=== PATIENT | male | born 1950 | race Caucasian/White ===

== ENCOUNTER 2017-05-14 13:28 | Emergency (ER) | payer OTHER, MEDICARE ==
[2017-05-14 13:40] VITALS: BP 173/97
[2017-05-14] MEDS ORDERED: Albuterol/Ipratropium 3.0-0.5 MG/3 ML Neb Soln NEB ONE (14:02)
[2017-05-14] MEDS ORDERED: Levofloxacin 750 MG Tab PO STA (14:04)
--- NOTE | 2017-05-14 14:26 | EDM.PDOC ---
ED HPI GENERAL MEDICAL PROBLEM - General Chief Complaint: Respiratory Problem Stated Complaint: SOB Time Seen by Provider: 05/14/17 13:31 Source of Information: Reports: Patient, Family (), RN Notes Reviewed History Limitations: Reports: No Limitations - History of Present Illness INITIAL COMMENTS - FREE TEXT/NARRATIVE: The patient states that he has had dyspnea on exertion, wheezing, and a cough waxing and waning for the past 10 days. Initially his cough was dry, but it is now productive of clear phlegm. His symptoms were the worst yesterday, not as bad today. He has not had a fever. He has not had any chest pain or palpitations. No recent nausea, vomiting, constipation, diarrhea, or urinary symptoms. He has had similar symptoms previously, but not as severe. He believes the last time this happened to him, he was diagnosed with pneumonia. The patient states that he and his drove to [facility], beginning 05/02/2017, taking 5 days to get there. They just got back here to [place] just now. The patient does not have a formal diagnosis of COPD, however, he was given an albuterol MDI about a month ago, and states that he has been using up to 6 or 7 times a day; twice today. He states that the albuterol definitely helps, but only for a brief time. Exposure to gr dust worsens his symptoms. I had the patient demonstrate his MDI use it for me; his technique is poor. He states that he was never instructed on how to use it. The patient's PCP is Dr. Manzanares. - Related Data Allergies Allergy/AdvReac Type Severity Reaction Status Date / Time No Known Allergies Allergy Verified 05/14/17 13:44 Home Meds: Home Meds Albuterol [IJP: Ventolin HFA] 1 - 2 puff INH ASDIRECTED PRN #1 mdi 05/14/17 [Rx] Albuterol [Ventolin HFA] 2 puff INH Q6H PRN 05/14/17 [History] Aspirin 81 mg PO DAILY 05/14/17 [History] Atenolol 25 mg PO DAILY 05/14/17 [History] Calcium Carbonate [Calcium] 60 mg PO DAILY 05/14/17 [History] Docusate Sodium [Stool Softener] 100 mg PO DAILY 05/14/17 [History] Inhaler, Assist Devices [Space Chamber Plus] 1 unit ASDIRECTED #1 spacer 04/22 [Rx] Levofloxacin [Levaquin] 1 tab PO DAILY #4 tablet 05/14/17 [Rx] Simvastatin [Zocor] 20 mg PO DAILY 05/14/17 [History] Thiamine Mononitrate [Vitamin B-1] 100 mg PO DAILY 05/14/17 [History] amLODIPine [Norvasc] 10 mg PO DAILY 05/14/17 [History] Past Medical History Cardiovascular History: Reports: High Cholesterol, Hypertension Genitourinary History: Reports: Chronic Renal Insuffiency - Past Surgical History Male Surgical History: Reports: Other (See Below) (Cystoscopy) Social & Family History - Tobacco Use Smoking Status *Q: Former Smoker Years of Tobacco use: 43 Packs/Tins Daily: 1 Month Tobacco Last Used: Quit 2012 - Caffeine Use Caffeine Use: Reports: Coffee - Alcohol Use Alcohol Use History: Yes Alcohol Use Frequency: Socially - Recreational Drug Use Recreational Drug Use: Yes Drug Use in Last 12 Months: Yes Recreational Drug Type: Reports: Marijuana/Hashish Recreational Drug Use Frequency: Daily - Living Situation & Occupation Living situation: Reports: , with Spouse Occupation: Employed ([employer]) ED ROS GENERAL - Review of Systems Review Of Systems: See Below Constitutional: Reports: No Symptoms HEENT: Reports: No Symptoms Respiratory: Reports: No Symptoms Cardiovascular: Reports: No Symptoms Endocrine: Reports: No Symptoms GI/Abdominal: Reports: No Symptoms : Reports: No Symptoms Musculoskeletal: Reports: No Symptoms Skin: Reports: No Symptoms Neurological: Reports: No Symptoms Psychiatric: Reports: No Symptoms Hematologic/Lymphatic: Reports: No Symptoms Immunologic: Reports: No Symptoms ED EXAM, GENERAL - Physical Exam Exam: See Below Exam Limited By: No Limitations General Appearance: Alert, WD/WN, No Apparent Distress Eye Exam: Bilateral Eye: Normal Inspection Ears: Normal External Exam, Hearing Grossly Normal Nose: Normal Inspection, No Blood Throat/Mouth: Normal Inspection, Normal Lips, Normal Voice, No Airway Compromise Head: Atraumatic, Normocephalic Neck: Normal Inspection, Full Range of Motion Respiratory/Chest: No Accessory Muscle Use, Decreased Breath Sounds (severe), Wheezing (faint throu ghout, due to tight/poor air movement), Prolonged Expiration (significant). No: Crackles, Rhonchi Cardiovascular: Normal Peripheral Pulses, Regular Rate, Rhythm, No Gallop, No JVD, No Murmur, No Rub Peripheral Pulses: 4+: Radial (L), Radial (R) GI/Abdominal: Normal Bowel Sounds, Soft, Non-Tender, No Organomegaly, No Distention, No Abnormal Bruit, No Mass (Male) Exam: Deferred Rectal (Males) Exam: Deferred Back Exam: Normal Inspection, Full Range of Motion, NT Extremities: Normal Inspection, Normal Range of Motion, No Pedal Edema, Normal Capillary Refill Neurological: Alert, Oriented, Normal Cognition, No Motor/Sensory Deficits Psychiatric: Normal Affect Skin Exam: Warm, Dry, Intact, Normal Color, No Rash EKG INTERPRETATION EKG Date: 05/14/17 Time: 14:16 Rhythm: NSR Rate (Beats/Min): 70 [place]: Normal P-Wave: Present QRS: Normal ST-T: Normal QT: Normal TX/PQ Interval: 1st degree AVB Comparison: NA - No Prior EKG Course - Vital Signs Last Recorded V/S: Last Vital Signs Temp 36.3 C 05/14/17 13:36 Pulse 74 05/14/17 13:36 Resp 18 05/14/17 13:36 BP 173/97 H 05/14/17 13:36 Pulse Ox 95 05/14/17 16:10 - Orders/Labs/Meds Orders: Active Orders 24 hr Category Date Time Status EKG Documentation Completion [RC] STAT Care 05/14/17 14:00 Active RT Aerosol Therapy [RC] ASDIRECTED Care 05/14/17 14:02 Active RT Aerosol Therapy [RC] ASDIRECTED Care 05/14/17 16:07 Active CULTURE BLOOD [BC] Stat Lab 05/14/17 14:25 Received CULTURE BLOOD [BC] Stat Lab 05/14/17 14:45 Received Blood Culture x2 Reflex Set [OM.PC] Stat Oth 05/14/17 14:00 Ordered Labs: Laboratory Tests 05/14/17 05/14/17 05/14/17 Range/Units 14:00 14:25 14:25 WBC 9.31 H (4.23-9.07) K/mm3 RBC 4.31 L (4.63-6.08) M/mm3 Hgb 13.8 (13.7-17.5) gm/L Hct 41.1 (40.1-51.0) % MCV 95.4 H (79.0-92.2) fl MCH 32.0 (25.7-32.2) pg MCHC 33.6 (32.2-35.5) g/dl RDW Std Deviation 45.8 H (35.1-43.9) fL Plt Count 270 (163-337) K/mm3 MPV 9.8 (9.4-12.3) fl Neutrophils % (Manual) 47 (40-60) % Band Neutrophils % 0 (0-10) % Lymphocytes % (Manual) 32 (20-40) % Atypical Lymphs % 0 % Monocytes % (Manual) 5 (2-10) % Eosinophils % (Manual) 16 H (0.8-7.0) % Basophils % (Manual) 0 L (0.2-1.2) Platelet Estimate Adequate RBC Morph Comment Normal PT 10.8 (8.0-13.0) SECONDS INR 0.99 APTT 26 (22-36) SECONDS D-Dimer, Quantitative 1.29 H (0.19-0.59) mg/L Puncture Site Lt radial ABG pH 7.43 (7.35-7.45) ABG pCO2 34.2 L (35.0-45.0) mmHg ABG pO2 68.0 L (80.0-100.0) mmHg ABG HCO3 22.5 (22.0-26.0) meq/L ABG O2 Saturation 93.9 L (96.0-97.0) % ABG Base Excess -0.7 (-2-2.0) Rafael Test Positive A-a Gradient 69 mmHg O2 Delivery Device Nasal cannula Oxygen Flow Rate 2.0 FiO2 28.00 (21.00-100.00) % Sodium (136-145) mEq/L Potassium (3.5-5.1) mEq/L Chloride (98-107) mEq/L Carbon Dioxide (21-32) mEq/L Anion Gap (5-15) BUN (7-18) mg/dL Creatinine (0.7-1.3) mg/dL Est Cr Clr Drug Dosing mL/min Estimated GFR (MDRD) (>60) mL/min BUN/Creatinine Ratio (14-18) Glucose (80-115) mg/dL Lactic Acid (0.4-2.0) mmol/L Calcium (8.5-10.1) mg/dL Total Bilirubin (0.2-1.0) mg/dL AST (15-37) U/L ALT (16-63) U/L Alkaline Phosphatase (46-116) U/L Troponin I (0.00-0.056) ng/mL NT-Pro-B Natriuret Pep (0-125) pg/mL Total Protein (6.4-8.2) g/dl Albumin (3.4-5.0) g/dl Globulin gm/dL Albumin/Globulin Ratio (1-2) 05/14/17 05/14/17 Range/Units 14:25 14:25 WBC (4.23-9.07) K/mm3 RBC (4.63-6.08) M/mm3 Hgb (13.7-17.5) gm/L Hct (40.1-51.0) % MCV (79.0-92.2) fl MCH (25.7-32.2) pg MCHC (32.2-35.5) g/dl RDW Std Deviation (35.1-43.9) fL Plt Count (163-337) K/mm3 MPV (9.4-12.3) fl Neutrophils % (Manual) (40-60) % Band Neutrophils % (0-10) % Lymphocytes % (Manual) (20-40) % Atypical Lymphs % % Monocytes % (Manual) (2-10) % Eosinophils % (Manual) (0.8-7.0) % Basophils % (Manual) (0.2-1.2) Platelet Estimate RBC Morph Comment PT (8.0-13.0) SECONDS INR APTT (22-36) SECONDS D-Dimer, Quantitative (0.19-0.59) mg/L Puncture Site ABG pH (7.35-7.45) ABG pCO2 (35.0-45.0) mmHg ABG pO2 (80.0-100.0) mmHg ABG HCO3 (22.0-26.0) meq/L ABG O2 Saturation (96.0-97.0) % ABG Base Excess (-2-2.0) Rafael Test A-a Gradient mmHg O2 Delivery Device Oxygen Flow Rate FiO2 (21.00-100.00) % Sodium 137 (136-145) mEq/L Potassium 3.7 (3.5-5.1) mEq/L Chloride 101 (98-107) mEq/L Carbon Dioxide 24 (21-32) mEq/L Anion Gap 15.7 H (5-15) BUN 22 H (7-18) mg/dL Creatinine 2.0 H (0.7-1.3) mg/dL Est Cr Clr Drug Dosing 36.50 mL/min Estimated GFR (MDRD) 33 (>60) mL/min BUN/Creatinine Ratio 11.0 L (14-18) Glucose 117 H (80-115) mg/dL Lactic Acid 1.1 (0.4-2.0) mmol/L Calcium 9.3 (8.5-10.1) mg/dL Total Bilirubin 0.4 (0.2-1.0) mg/dL AST 23 (15-37) U/L ALT 23 (16-63) U/L Alkaline Phosphatase 91 (46-116) U/L Troponin I < 0.017 (0.00-0.056) ng/mL NT-Pro-B Natriuret Pep 429 H (0-125) pg/mL Total Protein 7.9 (6.4-8.2) g/dl Albumin 3.6 (3.4-5.0) g/dl Globulin 4.3 gm/dL Albumin/Globulin Ratio 0.8 L (1-2) Meds: Medications Discontinued Medications Generic Name Dose Route Start Last Admin Trade Name Freq PRN Reason Stop Dose Admin Albuterol 2.5 mg 05/14/17 16:07 05/14/17 16:10 Proventil Neb Soln NEB 05/14/17 16:08 2.5 mg ONETIME ONE Administration Albuterol/Ipratropium 3 ml 05/14/17 14:02 05/14/17 14:11 Duoneb 3.0-0.5 Mg/3 Ml NEB 05/14/17 14:03 3 ml ONETIME ONE Administration Levofloxacin 750 mg 05/14/17 14:04 05/14/17 14:32 Levaquin PO 05/14/17 14:05 750 mg ONETIME STA Administration - Re-Assessments/Exams Free Text/Narrative Re-Assessment/Exam: 05/14/17 15:53 2-view chest radiograph is read by Dr. Rodriguez as: 1. Emphysematous change. Nothing acute is otherwise seen. 05/14/17 16:05 I reexamined the patient. He states that he is feeling considerably better, following the DuoNeb treatment. His lungs still sound poor, with prolonged exhalation and faint wheezes. It is difficult to say that they sound much better than they did earlier. I have ordered an albuterol neb treatment. 05/14/17 16:40 Following the albuterol neb, the patient states that he feels even better. He has fair overall air movement and faint expiratory wheezes. He still has prolonged exhalations. The patient's D-dimer is modestly elevated at 1.29, however, his creatinine is 2.0. In my opinion, his elevated D-dimer is due to his renal insufficiency, although, as I explained to the patient and his , it is possible that the patient has a PE. I offered to perform a CT angiogram of the chest to evaluate for PE, noting that he would likely suffer worsening renal insufficiency for approximately one week before returning to his baseline. Nevertheless, the patient declined this offer. We discussed the option of steroids. Steroids are often given for COPD exacerbations, however, I explained to the patient and his that while patients with COPD exacerbations who receive steroids do better initially, fewer of them are alive after 2 years compared to patients with COPD exacerbations who do not receive steroids. Obviously, this is a judgment call as whether or not to give steroids for a COPD exacerbation. The patient opted to not receive steroids. The patient feels well enough to go home. I will prescribe a spacer chamber, along with a new albuterol MDI, and 4 additional days of oral Levaquin ( antibiotics are recommended for COPD exacerbations even if no infection is found , as there is a presumption of an infection). I would like the patient to follow -up with his PCP, Dr. Manzanares, this week, to discuss referral to a [facility] for long-term treatment. Departure - Departure Time of Disposition: 16:44 Disposition: Home, Self-Care 01 Condition: Good Clinical Impression: COPD exacerbation - Discharge Information Prescriptions: Albuterol [IJP: Ventolin HFA] 1 - 2 puff INH ASDIRECTED PRN #1 mdi PRN Reason: Shortness Of Breath Inhaler, Assist Devices [Space Chamber Plus] 1 unit MC ASDIRECTED #1 spacer Levofloxacin [Levaquin] 1 tab PO DAILY #4 tablet Referrals: Bony Manzanares Jr, MD [Primary Care Provider] - Forms: ED Department Discharge Additional Instructions: You were seen in the emergency room for shortness of breath with exertion, wheezing, and cough. Workup in the ER included blood work, 2 sets of blood cultures, an arterial blood gas, an ECG, and a chest x-ray. For the most part, your workup was unremarkable, however, on examination, you had very poor air movement with faint wheezes. Your symptoms improved following a DuoNeb and albuterol neb treatment. Your symptoms were MOST LIKELY due to a COPD exacerbation. You have been started on antibiotic Levaquin. Take one tablet each evening, starting tomorrow, 05/15/2017. You have been prescribed an albuterol MDI. Always use it with a space chamber. Using it as often as necessary for shortness of breath, difficulty exhaling, wheezing, with or without a cough, however, if you need to use the albuterol more often than every 4 hours, you need to be seen by a doctor. We recommend that you follow-up with Dr. Manzanares, to discuss the option of being referred to a [facility]. If any other problems, please do not hesitate to return to the ER. - My Orders Last 24 Hours: My Active Orders 05/14/17 14:00 EKG Documentation Completion [RC] STAT Blood Culture x2 Reflex Set [OM.PC] Stat 05/14/17 14:02 RT Aerosol Therapy [RC] ASDIRECTED 05/14/17 14:25 CULTURE BLOOD [BC] Stat 05/14/17 14:45 CULTURE BLOOD [BC] Stat 05/14/17 16:07 RT Aerosol Therapy [RC] ASDIRECTED - Assessment/Plan Last 24 Hours: My Active Orders 05/14/17 14:00 EKG Documentation Completion [RC] STAT Blood Culture x2 Reflex Set [OM.PC] Stat 05/14/17 14:02 RT Aerosol Therapy [RC] ASDIRECTED 05/14/17 14:25 CULTURE BLOOD [BC] Stat 05/14/17 14:45 CULTURE BLOOD [BC] Stat 05/14/17 16:07 RT Aerosol Therapy [RC] ASDIRECTED
--- NOTE | 2017-05-14 15:36 | CR ---
Chest: Two views of the chest were obtained. Comparison: Previous chest x-ray of 03/04/13. Heart size appears within normal limits. Tortuous thoracic aorta is seen. Lungs are hyperinflated compatible with emphysematous change. Lungs otherwise are clear. Bony structures appear within normal limits for the patient's age. Impression: 1. Emphysematous change. Nothing acute is otherwise seen. Diagnostic code #3
[2017-05-14] MEDS ORDERED: Albuterol 0.083% 2.5 MG/3 ML Neb Soln NEB ONE (16:07)
== END 2017-05-14 17:23 | disposition home or self-care (01) ==
LOC: JD.ED 13:28
DX: J44.1 Chronic obstructive pulmonary disease with (acute) exacerbation (principal); E78.00 Pure hypercholesterolemia, unspecified; I10 Essential (primary) hypertension; Z79.82 Long term (current) use of aspirin; Z79.899 Other long term (current) drug therapy; Z87.891 Personal history of nicotine dependence; R06.02 Shortness of breath
CPT/HCPCS: 36415; 36600; 71020; 80053; 82803; 83605; 83880; 84484; 85025; 85379; 85610; 85730; 87040; 93005; 94640; 99285; A9270; 99284

== ENCOUNTER 2019-01-31 08:03 | Day surgery (SDC) | payer OTHER, MEDICARE ==
[~2019-01-31 08:03] MED LIST: Lactated Ringers 1,000 ML IV SCH; Lidocaine 1% 4 ML ONE; Lidocaine 1%/Sod Bicarbonate in NS 8.4% 1 ML Syringe IDERM PRN; Propofol 200 MG/20 ML SDV ONE; Sodium Chloride 0.9% 10 ML Syringe FLUSH PRN; fentaNYL 100 MCG/2 ML SDV ONE
--- NOTE | 2019-01-31 08:33 | PCM.PREANE ---
Preanesthetic Assessment - Anesthesia/Transfusion/Family Hx Anesthesia History: Prior Anesthesia Without Reaction Family History of Anesthesia Reaction: No Transfusion History: No Prior Transfusion(s) Intubation History: Unknown - Review of Systems General: No Symptoms Pulmonary: Wheezing Gastrointestinal: No Symptoms Neurological: No Symptoms Other: Reports: None - Physical Assessment NPO Status Date: 01/30/19 NPO Status Time: 07:00 Height: 1.78 m Weight: 73.028 kg ASA Class: 2 Mental Status: Alert & Oriented x3 Airway Class: Mallampati = 2 Dentition: Reports: Dentures ROM/Head Extension: Full Lungs: Wheezing Cardiovascular: Regular Rate, Regular Rhythm - Allergies Allergies/Adverse Reactions: Allergies Allergy/AdvReac Type Severity Reaction Status Date / Time No Known Allergies Allergy Verified 01/30/19 10:32 - Blood Blood Available: No - Anesthesia Plan Beta Robert: Atenolol - Acknowledgements Anesthesia Type Planned: MAC Pt an Appropriate Candidate for the Planned Anesthesia: Yes Alternatives and Risks of Anesthesia Discussed w Pt/Guardian: Yes Pt/Guardian Understands and Agrees with Anesthesia Plan: Yes Additional Comments: has aortic aneurysm - not operable- COPD- uses inhalers- this am - ventolin, Norvasc, ASA,Singulair, -- hypertension - 181/ PreAnesthesia Questionnaire HEENT History: Reports: Impaired Vision, Other (See Below) Other HEENT History: WEARS GLASSES, HAS DENTURES Cardiovascular History: Reports: High Cholesterol, Hypertension Respiratory History: Reports: Asthma, COPD, Other (See Below) Other Respiratory History: EMPHYSEMA, BRONCHITIS, DYSPNEA, RIGHT PULMONARY NODULES Gastrointestinal History: Reports: None Genitourinary History: Reports: BPH, Chronic Renal Insuffiency, Other (See Below ) Other Genitourinary History: CKD Iv, [employer]NAL [employer] History: Reports: None Musculoskeletal History: Reports: None Neurological History: Reports: None Psychiatric History: Reports: None Endocrine/Metabolic History: Reports: None Hematologic History: Reports: None Immunologic History: Reports: None Oncologic (Cancer) History: Reports: None Dermatologic History: Reports: None - Past Surgical History Head Surgeries/Procedures: Reports: None Cardiovascular Surgical History: Reports: None GI Surgical History: Reports: None Female Surgical History: Reports: TURBT Male Surgical History: Reports: Other (See Below) Endocrine Surgical History: Reports: None Neurological Surgical History: Reports: None Musculoskeletal Surgical History: Reports: None Oncologic Surgical History: Reports: None Dermatological Surgical History: Reports: None - SUBSTANCE USE Smoking Status *Q: Former Smoker Second Hand Smoke Exposure: No Days Per Week of Alcohol Use: 4 Number of Drinks Per Day: 3 Total Drinks Per Week: 12 Recreational Drug Use History: Yes Recreational Drug Type: Reports: Marijuana/Hashish - HOME MEDS Home Medications: Home Meds Albuterol [Ventolin HFA] 2 puff INH Q6H PRN 05/14/17 [History] Aspirin 81 mg PO DAILY 05/14/17 [History] Atenolol 25 mg PO DAILY 05/14/17 [History] Thiamine Mononitrate [Vitamin B-1] 100 mg PO DAILY 05/14/17 [History] amLODIPine [Norvasc] 10 mg PO DAILY 05/14/17 [History] Fluticasone/Vilanterol [Breo Ellipta 200-25 Mcg INH] 1 each IH DAILY 07/24/17 [ History] Montelukast [Singulair] 10 mg PO DAILY 07/24/17 [History] atorvaSTATin [Lipitor] 40 mg PO DAILY 07/24/17 [History] Ca Carbonate/Vitamin D3/Vit K [Calcium + D Soft Chewable Tab] 1 tab PO DAILY [History] Tiotropium [place] [Spiriva Respimat] 2 puff INH DAILY 01/30/19 [History] - CURRENT (IN HOUSE) MEDS Current Meds: Current Medications Lactated Ringer's (Ringers, Lactated) 1,000 mls @ 125 mls/hr IV ASDIRECTED MIRIAM Stop: 01/31/19 23:00 Lidocaine/Sodium Bicarbonate (Buffered Lidocaine 1% In Ns 8.4%) 0.25 ml IDERM ONETIME PRN PRN Reason: Prior to IV Start Stop: 01/31/19 18:00 Sodium Chloride (Saline Flush) 10 ml FLUSH ASDIRECTED PRN PRN Reason: Keep Vein Open Stop: 01/31/19 18:00 Discontinued Medications Fentanyl (Sublimaze) Confirm Administered Dose 100 mcg .ROUTE .STK-MED ONE Stop: 01/31/19 07:17 Lidocaine HCl (Xylocaine-Mpf 1%) Confirm Administered Dose 4 mls @ as directed .ROUTE .STK-MED ONE Stop: 01/31/19 07:16 Propofol (Diprivan 20 Ml) Confirm Administered Dose 200 mg .ROUTE .[facility] ONE Stop: 01/31/19 07:17
[2019-01-31] MEDS ORDERED: Sodium Chloride 0.9% 1,000 ML IV SCH (09:15)
[2019-01-31] MEDS ORDERED: Propofol 200 MG/20 ML SDV ONE (09:36)
--- NOTE | 2019-01-31 10:02 | PCM48HPAN ---
Post Anesthesia Note - EVALUATION WITHIN 48HRS OF ANESTHETIC Vital Signs in Normal Range: Yes Patient Participated in Evaluation: Yes Respiratory Function Stable: Yes Airway Patent: Yes Cardiovascular Function Stable: Yes Hydration Status Stable: Yes Pain Control Satisfactory: Yes Nausea and Vomiting Control Satisfactory: Yes Mental Status Recovered: Yes Pulse Rate: 54 SaO2: 96 Resp Rate: 16 Temperature: 97 F Blood Pressure: 118/85
--- NOTE | 2019-01-31 10:03 | PCM.OPNOTE ---
- General Post-Op/Procedure Note Date of Surgery/Procedure: 01/31/19 Operative Procedure(s): Colonoscopy with hot snare polypectomy and cold forceps biopsy Findings: Small Arteriorvenous malformation x 2 cecum, colon polyps x 4 Pre Op Diagnosis: Positive Fecal Immunochemical Test Post-Op Diagnosis: Colon polyps x 4, Small arteriorovenous malformation x 2 cecum Anesthesia Technique: MAC Primary Surgeon: Giancarlo Parker Anesthesia Provider: Manpreet Self EBL in mLs: 5 Complications: None Condition: Good Free Text/Narrative:: After the patient gave verbal and written consent he was placed on blood pressure and pulse ox monitoring. He was given IV sedation which he tolerated well. THe olympus colonoscope was inserted per rectum and advanced to the cecum without difficulty. THe ileocecal valve and appendiceal orfice were imaged documenting cecal intubation. The scope was slowly withdrawn and the mucosal surfaces were carefully examined. THe prep was moderate. A little bit of residual stool was aspirated to achieve mucosal views. 2 small Arteriovenous malformations were noted in the cecum and imaged. A small 2 mm cecal polyp was seen and removed with cold forceps biopsy. 3 small polyps found in the colon were removed with hot snare polypectomy: 4 mm ascending polyp, 6 mm ascending polyp, 6 mm sigmoid polyp. There was good hemostasis at the end of the procedure. The scope was retroflexed in the rectum and patient left the OR in good condition. No complications.
[2019-01-31 10:45] VITALS: BP 150/89
== END 2019-01-31 10:40 | disposition home or self-care (01) ==
LOC: JD.SDS 08:03
PROVIDERS: ATTEND Family Medicine
DX: D12.0 Benign neoplasm of cecum (principal); D12.2 Benign neoplasm of ascending colon; K63.5 Polyp of colon; Q27.33 Arteriovenous malformation of digestive system vessel; I71.4 Abdominal aortic aneurysm, without rupture; I12.9 Hypertensive chronic kidney disease with stage 1 through stage 4 chronic kidney disease, or unspecified chronic kidney disease; N18.4 Chronic kidney disease, stage 4 (severe); J43.9 Emphysema, unspecified; Z87.891 Personal history of nicotine dependence; E78.00 Pure hypercholesterolemia, unspecified; Z79.899 Other long term (current) drug therapy; Z79.82 Long term (current) use of aspirin; Z79.52 Long term (current) use of systemic steroids
CPT/HCPCS: 45380; 45385; J2001; J2704; J3010; J7040; 00811

== ENCOUNTER 2020-11-11 17:09 | Observation (INO) | payer MEDICARE, OTHER ==
--- NOTE | 2020-11-11 18:09 | EDM.PDOC ---
ED HPI GENERAL MEDICAL PROBLEM - General Chief Complaint: Cardiovascular Problem Stated Complaint: LOW HEMOGLOBIN/FATIGUE/SOB Time Seen by Provider: 11/11/20 17:15 Source of Information: Reports: Patient, Family (spouse) History Limitations: Reports: No Limitations - History of Present Illness INITIAL COMMENTS - FREE TEXT/NARRATIVE: 70-year-old male attends the ED at the request of his primary care provider. Patient was seen in [place] today by his delivery helper( Dr Joel) --he actually did not see the doctor today but his PA, in regards to his COPD status. It appears that his COPD status is unchanged. Patient went there because he is feeling short of breath on minimal exertion such as going up 5 stairs he has to rest. He has been getting cramps and pains in his feet and long bones of the lower legs. No chest pain on exertion. Feels fatigued and played out on minimal exertion. This has been coming on gradually over period of 6 to 8 weeks. Patient feels he is deteriorated since he had his first Covid vaccination. He has only received 1 out of 2 vaccinations. He believes that he contracted COVID-19 illness while he was hospitalized at the [facility] after repair of his abdominal aortic aneurysm in September 2019--highly unlikely.. 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 Patient does not feel that he is wheezing any worse than normal. Just short of breath on minimal exertion. Lab work done at the clinic today identified his hemoglobin to be only 5.0. He was advised to check it at [facility] walk-in [facility] here in [place] which he did. Hemoglobin there was 4.8. Therefore the patient has significant anemia. He does not appreciate any blood in his stools ever. He had a colonoscopy about 18 months to 2 years ago and had 1 polyp removed but no other worrisome findings. He has no upper GI symptoms to suggest peptic ulcer disease. His chief complaint is that of generalized pruritus likely due to uremia. He is followed by Dr. Aparicio -- java web user interface developer--he sees here in [place] when he comes to [facility] about once every 3 to 4 months. Patient was to start prednisone 20 mg twice daily for suspected COPD exacerbation and he has filled the prescription for this medication. Onset: Gradual Onset Date: 09/06/20 (He believes he has been gradually getting more short of breath since the beginning of September 26.) Duration: Week(s):, Chronic, Getting Worse Location: Reports: Chest (Minimal exertion such as going up a flight of stairs he can make about 5 stairs before he has to stop and rest which is totally out of character for him.), Generalized (Of breath on minimal exertion. Increased fatigue on minimal exertion. Lower extremity aching pain in the long bones i.e. the tibia and cramps in his feet.) Quality: Reports: Other (Neurolysed weakness and fatigue. Dyspnea on minimal exertion.) Severity: Severe Improves with: Reports: Rest Worsens with: Reports: Movement (Dyspnea on minimal exertion with no chest pain such as walking 25 feet at a regular pace. Walking up about 5 stairs makes him rest before he can go on. This is a dramatic change compared to 4 months ago.) Context: Denies: Activity, Exercise, Lifting, Sick Contact, Trauma, Other Associated Symptoms: Reports: Cough, Loss of Appetite, Malaise (Decrease in appetite.), Shortness of Breath, Weakness (Normalized.). Denies: No Other Symptoms, Confusion, Chest Pain, cough w sputum (Nonproductive), Diaphoresis, Fever/Chills, Headaches, Nausea/Vomiting, Rash, Seizure, Syncope (Minimal exertion.) Treatments DESIGN CHECKER: Reports: Other (see below) (Only prescribed medications.) - Related Data Allergies Allergy/AdvReac Type Severity Reaction Status Date / Time No Known Allergies Allergy Verified 11/11/20 17:24 Home Meds: Home Meds Albuterol [Ventolin HFA] 2 puff INH Q6H PRN 05/14/17 [History] Aspirin 81 mg PO DAILY 05/14/17 [History] Thiamine Mononitrate (Vit B1) [Vitamin B-1] 100 mg PO DAILY 05/14/17 [History] amLODIPine [Norvasc] 10 mg PO DAILY 05/14/17 [History] atenoloL [Atenolol] 25 mg PO DAILY 05/14/17 [History] Montelukast [Singulair] 10 mg PO DAILY 07/24/17 [History] atorvaSTATin [Lipitor] 40 mg PO DAILY 07/24/17 [History] Calcium Carb/Vitamin D3/Vit K1 [Calcium + D Soft Chewable Tab] 1 tab PO DAILY 01/30/19 [History] Tiotropium [place] [Spiriva Respimat] 2 puff INH DAILY 01/30/19 [History] Azithromycin 250 mg PO DAILY 11/11/20 [History] Docusate Sodium 100 mg PO DAILY 11/11/20 [History] Fluticasone/Vilanterol [Breo Ellipta 100-25 MCG Inhalation Kit] 1 puff INH DAILY 11/11/20 [History] Rivaroxaban [Xarelto] 10 mg PO DAILY 11/11/20 [History] Sodium Bicarbonate 650 mg PO TID 11/11/20 [History] calcitrioL [Rocaltrol] 0.25 mcg PO MOWEFR 11/11/20 [History] predniSONE 40 mg PO DAILY 11/11/20 [History] Past Medical History HEENT History: Reports: Impaired Vision, Other (See Below) Other HEENT History: WEARS GLASSES, HAS DENTURES Cardiovascular History: Reports: High Cholesterol, Hypertension Respiratory History: Reports: Asthma, COPD, Other (See Below) Other Respiratory History: EMPHYSEMA, BRONCHITIS, DYSPNEA, RIGHT PULMONARY NODULES Gastrointestinal History: Reports: None Genitourinary History: Reports: BPH, Chronic Renal Insuffiency, Other (See Below) (Patient has been identified to have 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 Hypertrophic right kidney. During his surgery in September 2019 when his abdominal aortic aneurysm repaired reportedly the left renal artery was tied off in hopes of improving blood flow to the right kidney.) Other Genitourinary History: CKD Iv, RENAL INSUFFICIENCY ACOUSTIC WARFARE ANALYST History: Reports: None Musculoskeletal History: Reports: None Neurological History: Reports: None Psychiatric History: Reports: None Endocrine/Metabolic History: Reports: None Hematologic History: Reports: None Immunologic History: Reports: None Oncologic (Cancer) History: Reports: None Dermatologic History: Reports: None - Past Surgical History Head Surgeries/Procedures: Reports: None Cardiovascular Surgical History: Reports: AAA Repair (Done in the [facility] in September 2019. There is some question as to whether the aneurysm repair went above the renal arteries.), Aneurysm (Hany aortic aneurysm) GI Surgical History: Reports: None Female Surgical History: Reports: Other (See Below) (Transurethral resection of his prostate gland and done in 2013 in [place]. No cancer cells identified) Male Surgical History: Reports: Other (See Below) Endocrine Surgical History: Reports: None Neurological Surgical History: Reports: None Musculoskeletal Surgical History: Reports: None Oncologic Surgical History: Reports: None Dermatological Surgical History: Reports: None Social & Family History - Tobacco Use Tobacco Use Status *Q: Never Tobacco User - Caffeine Use Caffeine Use: Reports: Coffee, Tea - Alcohol Use Days Per Week of Alcohol Use: 7 Number of Drinks Per Day: 1 Total Drinks Per Week: 7 Alcohol Use Frequency: Daily - Recreational Drug Use Recreational Drug Use: Yes Drug Use in Last 12 Months: Yes Recreational Drug Type: Reports: Marijuana/Hashish Recreational Drug Use Frequency: Weekly - Living Situation & Occupation Living situation: Reports: , with Spouse Occupation: Employed ([employer]) ED ROS GENERAL - Review of Systems Review Of Systems: See Below Constitutional: Reports: Malaise, Weakness, Fatigue, Decreased Appetite. Denies: Fever, Chills HEENT: Reports: Glasses, Other Respiratory: Reports: Shortness of Breath (Mild hearing loss he does not wear hearing aids.), Wheezing (History of significant COPD.), Cough. Denies: Pleuritic Chest Pain (Occasionally. ), Sputum, Hemoptysis (Dry cough at best.) Cardiovascular: Reports: Dyspnea on Exertion (Occurs on minimal exertion compared to 4 months ago.), Lightheadedness (Occasional when he stands up too fast.). Denies: Chest Pain, Blood Pressure Problem, Claudication, Orthopnea, Palpitations Endocrine: Reports: Fatigue (Cruciates that he plays out much easier than normal.) GI/Abdominal: Reports: Constipation, Decreased Appetite. Denies: Distension, Flatus, Hematemesis, Hematochezia, Melena, Nausea, Stool Incontinence, Vomiting : Reports: Frequency, Other (Nocturia x2. Previous TURP 2014). Denies: Dysuria, Incontinence Musculoskeletal: Reports: Joint Pain (30 changes knees hips low back neck and s houlders at times. No surgery in any joints.) Skin: Reports: Pallor Neurological: Reports: No Symptoms Psychiatric: Reports: No Symptoms Hematologic/Lymphatic: Reports: No Symptoms, Anemia (Noticed with anemia today but not known to be anemic before and does not believe even received blood transfusion with his abdominal aortic aneurysm repair.) Immunologic: Reports: No Symptoms ED EXAM, GENERAL - Physical Exam Exam: See Below Exam Limited By: No Limitations General Appearance: Alert, WD/WN, No Apparent Distress, Other (Patient is pallid in appearance. Temperature is 36.3 degrees with a heart rate of 70 and sinus. Respiratory was 16 with O2 sats of 97% at rest. BP 114/48.) Eye Exam: Bilateral Eye: Normal Inspection (Patient has significant blepharal pallor bilaterally. No scleral icterus. Estimated hemoglobin to be under 8 clinically.), PERRL Ears: Normal TMs Nose: Normal Inspection, Normal Mucosa, No Blood Throat/Mouth: Normal Inspection, Normal Lips, Normal Teeth, Normal Oropharynx Head: Atraumatic, Normocephalic Neck: Normal Inspection, Supple, Non-Tender, Full Range of Motion. No: Lymphadenopathy (L), Lymphadenopathy (R) Respiratory/Chest: No Respiratory Distress, Lungs Clear, No Accessory Muscle Use, Decreased Breath Sounds (Creased air entry to the lower 30% of lung rojo bilaterally. Very rare occasional expiratory wheeze on forced expiration.), W heezing (Rare on forced expiration posterior lung bases.). No: Respiratory Distress Cardiovascular: Regular Rate, Rhythm, No Edema, No Gallop, No JVD, No Murmur, No Rub. No: Normal Peripheral Pulses Peripheral Pulses: 2+: Carotid (L), Carotid (R), Posterior Tibial (L), Posterior Tibial (R), Dorsalis Pedis (L), Dorsalis Pedis (R) GI/Abdominal: Normal Bowel Sounds, Soft, Non-Tender, No Organomegaly, No Abnormal Bruit, No Mass, Pelvis Stable, Other (Healing midline laparotomy from xiphisternum to pubic symphysis for repair of aortic abdominal aneurysm in September 2009 at the [facility]. He states he has had no other abdominal surgery.) (Male) Exam: No Hernia Rectal (Males) Exam: Normal Exam, Normal Rectal Tone, Prostate Normal, Other (There is no stool in the rectal vault to obtain stool for guaiac or occult blood analysis.) Back Exam: Normal Inspection. No: CVA Tenderness (L), CVA Tenderness (R), Vertebral Tenderness Extremities: Normal Inspection, Normal Range of Motion, Non-Tender, No Pedal Edema Neurological: Alert, Oriented, CN II-XII Intact, Normal Cognition Psychiatric: Normal Affect, Anxious (Mildly anxious.) Skin Exam: Warm, Dry, Intact, Pallor (Heart pallor particularly in the palmar aspects of his hands in comparison to mine. Tongue is slightly white laterally .) #1 Interpretation EKG Date: 11/11/20 Time: 18:27 Rhythm: NSR Rate (Beats/Min): 62 (Frequent premature supraventricular contractions likely PJCs) Jackson: Normal P-Wave: Present (With first-degree AV block) QRS: Other (Near Q-wave V1 and V2 compared with an old anteroseptal myocardial infarction. Early R wave transition with prominence of the R wave in V4 suggesting septal hypertrophy pattern.) ST-T: Depressed (ST segment depression V3 to V6 likely due to ventricle left ventricular strain pattern.) QT: Normal EKG Interpretation Comments: Abnormal ECG Course - Vital Signs Last Recorded V/S: Last Vital Signs Temp 36.6 C 11/11/20 20:18 Pulse 72 11/11/20 20:18 Resp 12 11/11/20 20:18 BP 129/65 11/11/20 20:18 Pulse Ox 93 L 11/11/20 20:00 - Orders/Labs/Meds Orders: Active Orders 24 hr Category Date Time Status Admission Status [Patient Status] [ADT] Routine ADT 11/11/20 20:25 Ordered EKG Documentation Completion [RC] STAT Care 11/11/20 18:00 Active PACKED CELLS [RED BLOOD CELLS LP] [BBK] Stat Lab 11/11/20 17:34 Results TYPE AND SCREEN [BBK] Stat Lab 11/11/20 17:34 Results Sodium Chloride 0.9% [Normal Saline] 250 ml Med 11/11/20 19:39 Active IV STAT Medication Orders Sodium Chloride (Normal Saline) 250 mls @ 100 mls/hr IV STAT STA Stop: 11/11/20 22:08 Last Admin: 11/11/20 19:51 Dose: 100 mls/hr Documented by: RYAN Labs: Laboratory Tests 11/11/20 11/11/20 11/11/20 Range/Units 17:34 17:34 17:34 WBC 7.33 (4.23-9.07) K/mm3 RBC 2.26 L (4.63-6.08) M/mm3 Hgb 4.7 L* D (13.7-17.5) gm/dl Hct 16.8 L (40.1-51.0) % MCV 74.3 L D (79.0-92.2) fl MCH 20.8 L (25.7-32.2) pg MCHC 28.0 L (32.2-35.5) g/dl RDW Std Deviation 48.1 H (35.1-43.9) fL Plt Count 381 H D (163-337) K/mm3 MPV 10.1 (9.4-12.3) fl Neut % (Auto) 65.7 (34.0-67.9) % Lymph % (Auto) 17.5 L (21.8-53.1) % [place] % (Auto) 12.3 H (5.3-12.2) % Eos % (Auto) 4.0 (0.8-7.0) Baso % (Auto) 0.4 (0.1-1.2) % Neut # (Auto) 4.82 (1.78-5.38) K/mm3 Lymph # (Auto) 1.28 L (1.32-3.57) K/mm3 [place] # (Auto) 0.90 H (0.30-0.82) K/mm3 Eos # (Auto) 0.29 (0.04-0.54) K/mm3 Baso # (Auto) 0.03 (0.01-0.08) K/mm3 Manual Slide Review Abnormal smear ESR (0-15) mm/hr Percent Retic 2.44 H (0.51-1.81) % PT 15.2 H (9.7-12.0) SECONDS INR 1.43 APTT 26.8 (21.7-31.4) SECONDS Sodium 140 (136-145) mEq/L Potassium 4.0 (3.5-5.1) mEq/L Chloride 103 (98-107) mEq/L Carbon Dioxide 24 (21-32) mEq/L Anion Gap 17.0 H (5-15) BUN 28 H (7-18) mg/dL Creatinine 2.6 H (0.7-1.3) mg/dL Est Cr Clr Drug Dosing 27.75 mL/min Estimated GFR (MDRD) 24 (>60) mL/min BUN/Creatinine Ratio 10.8 L (14-18) Glucose 129 H (83-115) mg/dL Calcium 8.8 (8.5-10.1) mg/dL Magnesium 2.2 (1.8-2.4) mg/dl Iron (65-175) ug/dL TIBC (100-400) ug/dL % Saturation (20-55) % Transferrin (202-364) mg/dL Total Bilirubin 0.5 (0.2-1.0) mg/dL AST 16 (15-37) U/L ALT 76 H (16-63) U/L Alkaline Phosphatase 72 (46-116) U/L C-Reactive Protein 0.3 (<1.0) mg/dL NT-Pro-B Natriuret Pep (0-125) pg/mL Total Protein 7.2 (6.4-8.2) g/dl Albumin 3.4 (3.4-5.0) g/dl Globulin 3.8 gm/dL Albumin/Globulin Ratio 0.9 L (1-2) TSH 3rd Generation (0.358-3.74) uIU/mL SARS-CoV-2 RNA ([place]) (NEGATIVE) Blood Type Gel Antibody Screen Crossmatch 11/11/20 11/11/20 11/11/20 Range/Units 17:34 17:34 17:34 WBC (4.23-9.07) K/mm3 RBC (4.63-6.08) M/mm3 Hgb (13.7-17.5) gm/dl Hct (40.1-51.0) % MCV (79.0-92.2) fl MCH (25.7-32.2) pg MCHC (32.2-35.5) g/dl RDW Std Deviation (35.1-43.9) fL Plt Count (163-337) K/mm3 MPV (9.4-12.3) fl Neut % (Auto) (34.0-67.9) % Lymph % (Auto) (21.8-53.1) % [place] % (Auto) (5.3-12.2) % Eos % (Auto) (0.8-7.0) Baso % (Auto) (0.1-1.2) % Neut # (Auto) (1.78-5.38) K/mm3 Lymph # (Auto) (1.32-3.57) K/mm3 [place] # (Auto) (0.30-0.82) K/mm3 Eos # (Auto) (0.04-0.54) K/mm3 Baso # (Auto) (0.01-0.08) K/mm3 Manual Slide Review ESR 44 H (0-15) mm/hr Percent Retic (0.51-1.81) % PT (9.7-12.0) SECONDS INR APTT (21.7-31.4) SECONDS Sodium (136-145) mEq/L Potassium (3.5-5.1) mEq/L Chloride (98-107) mEq/L Carbon Dioxide (21-32) mEq/L Anion Gap (5-15) BUN (7-18) mg/dL Creatinine (0.7-1.3) mg/dL Est Cr Clr Drug Dosing mL/min Estimated GFR (MDRD) (>60) mL/min BUN/Creatinine Ratio (14-18) Glucose (83-115) mg/dL Calcium (8.5-10.1) mg/dL Magnesium (1.8-2.4) mg/dl Iron 14 L (65-175) ug/dL TIBC 439 H (100-400) ug/dL % Saturation 3 L (20-55) % Transferrin 351 (202-364) mg/dL Total Bilirubin (0.2-1.0) mg/dL AST (15-37) U/L ALT (16-63) U/L Alkaline Phosphatase (46-116) U/L C-Reactive Protein (<1.0) mg/dL NT-Pro-B Natriuret Pep 1663 H (0-125) pg/mL Total Protein (6.4-8.2) g/dl Albumin (3.4-5.0) g/dl Globulin gm/dL Albumin/Globulin Ratio (1-2) TSH 3rd Generation (0.358-3.74) uIU/mL SARS-CoV-2 RNA ([place]) (NEGATIVE) Blood Type Gel Antibody Screen Crossmatch 11/11/20 11/11/20 11/11/20 Range/Units 17:34 17:34 18:00 WBC (4.23-9.07) K/mm3 RBC (4.63-6.08) M/mm3 Hgb (13.7-17.5) gm/dl Hct (40.1-51.0) % MCV (79.0-92.2) fl MCH (25.7-32.2) pg MCHC (32.2-35.5) g/dl RDW Std Deviation (35.1-43.9) fL Plt Count (163-337) K/mm3 MPV (9.4-12.3) fl Neut % (Auto) (34.0-67.9) % Lymph % (Auto) (21.8-53.1) % [place] % (Auto) (5.3-12.2) % Eos % (Auto) (0.8-7.0) Baso % (Auto) (0.1-1.2) % Neut # (Auto) (1.78-5.38) K/mm3 Lymph # (Auto) (1.32-3.57) K/mm3 [place] # (Auto) (0.30-0.82) K/mm3 Eos # (Auto) (0.04-0.54) K/mm3 Baso # (Auto) (0.01-0.08) K/mm3 Manual Slide Review ESR (0-15) mm/hr Percent Retic (0.51-1.81) % PT (9.7-12.0) SECONDS INR APTT (21.7-31.4) SECONDS Sodium (136-145) mEq/L Potassium (3.5-5.1) mEq/L Chloride (98-107) mEq/L Carbon Dioxide (21-32) mEq/L Anion Gap (5-15) BUN (7-18) mg/dL Creatinine (0.7-1.3) mg/dL Est Cr Clr Drug Dosing mL/min Estimated GFR (MDRD) (>60) mL/min BUN/Creatinine Ratio (14-18) Glucose (83-115) mg/dL Calcium (8.5-10.1) mg/dL Magnesium (1.8-2.4) mg/dl Iron (65-175) ug/dL TIBC (100-400) ug/dL % Saturation (20-55) % Transferrin (202-364) mg/dL Total Bilirubin (0.2-1.0) mg/dL AST (15-37) U/L ALT (16-63) U/L Alkaline Phosphatase (46-116) U/L C-Reactive Protein (<1.0) mg/dL NT-Pro-B Natriuret Pep (0-125) pg/mL Total Protein (6.4-8.2) g/dl Albumin (3.4-5.0) g/dl Globulin gm/dL Albumin/Globulin Ratio (1-2) TSH 3rd Generation 1.687 (0.358-3.74) uIU/mL SARS-CoV-2 RNA ([place]) Negative (NEGATIVE) Blood Type AB NEGATIVE Gel Antibody Screen Negative Crossmatch See Detail Meds: Medications Generic Name Dose Route Start Last Admin Trade Name Freq PRN Reason Stop Dose Admin Sodium Chloride 250 mls @ 100 mls/hr 11/11/20 19:39 11/11/20 19:51 Normal Saline IV 11/11/20 22:08 100 mls/hr STAT STA Administration - Radiology Interpretation Free Text/Narrative:: 70-year-old male attends the ED at the request of primary care provider.. Patient was seen by PA in [place] earlier today and regarding to his COPD. His delivery helper is . He went to the delivery helper believing that he had CB or PDT deterioration due to development of shortness of breath on minimal exertion. Lab work done there revealed that his hemoglobin was only 5.0. He was thus referred to the [facility] here in [place] where he attended the walk-in clinic. They repeated his hemoglobin and found it to be 4.8. He was then advised to attend the ED for admission and blood transfusion. Hemoglobin here was found to be 4.8. Patient is quite pallid in appearance. He has marked blepharal pallor compatible with a hemoglobin under 8. Patient has renal insufficiency having only one kidney. Left kidney never formed appropriately i.e. renal agenesis from . He is known to be suffering from stage IV renal insufficiency and is followed by Dr. Aparicio--java web user interface developer in this regard. Plan patient will have repeat CBC, CMP, CRP and total iron-binding capacity, serum transferrin serum total iron binding capacity and iron percentage saturation. He had a chest x-ray done in [place] earlier this afternoon and had hyperinflated lung rojo with no signs of pulmonary infiltrates. Cardiac silhouette is mildly enlarged. Believe the patient received a prescription for prednisone but unclear of the dosage to start for suspect COPD exacerbation which she has filled but probably does not require. He also received another medication of which I am unclear of. - Re-Assessments/Exams Free Text/Narrative Re-Assessment/Exam: 11/11/20 19:45 Hematology is now available. Total white count is 7.33 with differential showing 65.7% neutrophils and 17.5% lymphocytes. Hemoglobin is low at 4.7 with hematocrit of 16.8. MCV is 74.3. Mean corpuscular hemoglobin is 20.8. Platelet count is slightly elevated at 381,000. Sed rate is 44 . Reticulocyte count is elevated at 2.44 dictating his bone marrow is likely functioning normally. PT is 15.2 with an INR of 1.43( auto anti coagulated) and PTT is 26.8.. Sodium was 140 with a potassium of 4.0 and a chloride of 103. Bicarb is 24. Anion gap is 17.0. BUN is 28 with a creatinine of 2.6. GFR is estimated only to be 24 which is stage IV renal insufficiency and likely contributing to his anemia. Glucose is 129 with a calcium of 8.8. Magnesium is 2.2. Iron is low at 14 with a TIBC elevated at 439. Percent saturation is 3. Serum transferrin is 351. Total bilirubin is 0.5 with an AST of 16. ALT slightly elevated at 76. Alkaline phosphatase normal at 72. Albumin fraction is 3.4. TSH is normal at 1.687. 11/11/20 20:20: Case discussed with Dr. Ko on-call hospitalist. Patient was crossmatched for 4 units of packed RBCs and suggest each unit be transfused over 3 hours. This deserves a stay in the observation unit overnight to allow him to receive 4 units of packed RBCs to improve his hemoglobin to around 9.0. He is in mild congestive heart failure and I would suggest Lasix 40 mg intravenously after the first 2 units of packed RBCs and after the completion of the fourth unit having been transfused. Departure - Departure Time of Disposition: 21:05 Disposition: Refer to Observation Reason for Transfer *Q: Other Condition: Fair Clinical Impression: Chronic renal insufficiency, stage IV (severe), Mild congestive heart failure Chronic obstructive pulmonary disease (COPD) Qualifiers: COPD type: emphysema Emphysema type: panlobular Qualified Code(s): J43.1 - Panlobular emphysema Anemia Qualifiers: Anemia type: iron deficiency Iron deficiency anemia type: unspecified iron deficiency Qualified Code(s): D50.9 - Iron deficiency anemia, unspecified Referrals: PCP,None [Ordering Only Provider] - Forms: ED Department Discharge Sepsis Event Note (ED) - Evaluation Sepsis Screening Result: No Definite Risk - Focused Exam Vital Signs: Vital Signs Temp Temp Pulse Resp BP Pulse Ox 11/11/20 20:18 36.6 C 72 12 129/65 11/11/20 20:00 36.4 C 73 12 125/70 93 L 11/11/20 17:20 36.3 C 69 16 114/48 L 97 - My Orders Last 24 Hours: My Active Orders 11/11/20 17:34 PACKED CELLS [RED BLOOD CELLS LP] [BBK] Stat TYPE AND SCREEN [BBK] Stat 11/11/20 18:00 EKG Documentation Completion [RC] STAT 11/11/20 19:39 Sodium Chloride 0.9% [Normal Saline] 250 ml IV STAT 11/11/20 20:25 Admission Status [Patient Status] [ADT] Routine - Assessment/Plan Last 24 Hours: My Active Orders 11/11/20 17:34 PACKED CELLS [RED BLOOD CELLS LP] [BBK] Stat TYPE AND SCREEN [BBK] Stat 11/11/20 18:00 EKG Documentation Completion [RC] STAT 11/11/20 19:39 Sodium Chloride 0.9% [Normal Saline] 250 ml IV STAT 11/11/20 20:25 Admission Status [Patient Status] [ADT] Routine
[2020-11-11] MEDS ORDERED: Sodium Chloride 0.9% 250 ML IV STA (19:39)
[2020-11-11] MEDS ORDERED: Albuterol 0.083% 2.5 MG/3 ML Neb Soln NEB PRN (21:51)
[2020-11-11] MEDS ORDERED: Acetaminophen 325 MG Tab PO PRN (21:51)
[2020-11-11] MEDS ORDERED: Ondansetron 4 MG/2 ML SDV IV PRN (21:51)
[2020-11-11] MEDS ORDERED: Albuterol/Ipratropium 3.0-0.5 MG/3 ML Neb Soln NEB PRN (21:51)
[2020-11-12] MEDS ORDERED: Furosemide 20 MG/2 ML VIAL IVPUSH ONE ×2 (04:00)
[2020-11-12] MEDS: amLODIPine 10 MG Tab PO SCH ×2 (08:04→10:25)
[2020-11-12] MEDS: Calcitriol 0.25 MCG Cap PO SCH ×2 (08:04→10:25)
[2020-11-12] MEDS: atorvaSTATin 40 MG Tab PO SCH ×2 (08:04→10:25)
[2020-11-12] MEDS: Thiamine 100 MG Tab PO SCH ×2 (08:04→10:25)
[2020-11-12] MEDS: Atenolol 25 MG Tab PO SCH ×2 (08:05→10:25)
[2020-11-12] MEDS: Sodium Bicarbonate 650 MG Tab PO SCH ×2 (08:05→10:25)
--- NOTE | 2020-11-12 08:06 | PCM.HP.2 ---
H&P History of Present Illness - General Date of Service: 11/12/20 Admit Problem/Dx: Admission Diagnosis/Problem Admission Diagnosis/Problem Anemia Source of Information: Patient, Old Records, Provider, RN, RN Notes Reviewed History Limitations: Reports: No Limitations - History of Present Illness Initial Comments - Free Text/Narative: This is a 70-year-old male who presents to ED on 11/11/2020 with anemia, fatigue, and shortness of breath request of his primary care provider. He reportedly saw pulmonology in [place] today for COPD follow-up. He reports he was noting sh ortness of breath with minimal exertion such as going up 5 stairs, cramps, and feet and long bone pain in his lower legs. Denies any chest pain. He has been fatigued and reports symptoms have been ongoing and worsening over 6 to 8 weeks. Has received one of the 2 Covid vaccinations. 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 Patient does not feel that he is wheezing any worse than normal. Hemoglobin in [place] was 5.0 and he was told to report to the [facility], which she did. Hemoglobin there was noted to be 4.8 and he was sent to the emergency department. Denies any hematochezia or melena. Reports a colonoscopy approximately 1-1/2 to 2 years ago with 1 polyp removed but no other findings. No upper GI symptoms. He does report generalized pruritus likely due to uremia. He is followed by Dr. Aparicio who about every 3 to 4 months. He is reportedly supposed to start prednisone 20 mg twice daily for COPD exacerbation. In the ED temp was 36.6 Celsius. Pulse 72. Respirations 12. Blood pressure 129/65. Pulse ox 93%. Twelve-lead EKG was obtained showing a sinus rhythm with a rate of 62 and frequent premature supraventricular contractions likely PJCs noted. There is a first-degree AV block and near Q waves in V1 and V2. Early R wave transition with prominence of the R wave in V4 is noted and there is ST segment depression in V3 to V6. Labs are obtained: WBC is normal at 7.33. Hemoglobin very low at 4.7. Hematocrit 16.8. Platelets are high at 381,000. Neutrophils are 65.7. Reticulocyte count is high at 2.44. INR is 1.43. aPTT is 26.8. Sodium 140. Potassium 4.0. Chloride 103. Carbon dioxide 24. Anion gap is 17.0. BUN is high at 28. Creatinine high at 2.6. GFR is 24. Magnesium is 2.2. Total bilirubin 0.5. AST 16, ALT 76, alkaline phosphatase 72. Albumin is 3.4. ESR is 44. Iron is 14, TIBC is 439, percent saturation is 3%, transferrin is 351. proBNP is 1663. TSH is 1.678. SARS Covid 2 RNA is negative. He is AB- blood type. Chest x-ray is obtained earlier in the day in [place] and noted to show hyperinflated lung rojo with no signs of pulmonary infiltrates. Cardiac silhouette was noted to be enlarged. He was given 3 units of blood with 40 mg of IV Lasix in between. He subsequently mated to the medical floor for management of his anemia accompanied by stage IV CKD, COPD, and CHF. He is a full code. His PCP is Dr. Manzanares. He carries a history of HLD, HTN, asthma, COPD, emphysema, bronchitis, dyspnea, right pulmonary nodules, BPH, chronic renal insufficiency, akinesis of left kidney, hypertrophic right kidney AAA repair done in [facility] in September 2019, TURP performed in [place] in 2013, weekly marijuana use. - Related Data Allergies/Adverse Reactions: Allergies Allergy/AdvReac Type Severity Reaction Status Date / Time No Known Allergies Allergy Verified 11/11/20 21:25 Home Medications: Home Meds Albuterol [Ventolin HFA] 2 puff INH Q6H PRN 05/14/17 [History] Aspirin 81 mg PO DAILY 05/14/17 [History] Thiamine Mononitrate (Vit B1) [Vitamin B-1] 100 mg PO DAILY 05/14/17 [History] amLODIPine [Norvasc] 10 mg PO DAILY 05/14/17 [History] atenoloL [Atenolol] 25 mg PO DAILY 05/14/17 [History] Montelukast [Singulair] 10 mg PO DAILY 07/24/17 [History] atorvaSTATin [Lipitor] 40 mg PO DAILY 07/24/17 [History] Calcium Carb/Vitamin D3/Vit K1 [Calcium + D Soft Chewable Tab] 1 tab PO DAILY 01/30/19 [History] Tiotropium [place] [Spiriva Respimat] 2 puff INH DAILY 01/30/19 [History] Docusate Sodium 100 mg PO DAILY 11/11/20 [History] Fluticasone/Vilanterol [Breo Ellipta 100-25 MCG Inhalation Kit] 1 puff INH DAILY 11/11/20 [History] Sodium Bicarbonate 650 mg PO TID 11/11/20 [History] calcitrioL [Rocaltrol] 0.25 mcg PO MOWEFR 11/11/20 [History] Past Medical History HEENT History: Reports: Impaired Vision, Other (See Below) Other HEENT History: WEARS GLASSES, HAS DENTURES Cardiovascular History: Reports: High Cholesterol, Hypertension Respiratory History: Reports: Asthma, COPD, Other (See Below) Other Respiratory History: EMPHYSEMA, BRONCHITIS, DYSPNEA, RIGHT PULMONARY NODULES Gastrointestinal History: Reports: None Genitourinary History: Reports: BPH, Chronic Renal Insuffiency, Other (See Below) (Patient has been identified to have 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 Hypertrophic right kidney. During his surgery in September 2019 when his abdominal aortic aneurysm repaired reportedly the left renal artery was tied off in hopes of improving blood flow to the right kidney.) Other Genitourinary History: CKD Iv, [employer] History: Reports: None Musculoskeletal History: Reports: None Neurological History: Reports: None Psychiatric History: Reports: None Endocrine/Metabolic History: Reports: None Hematologic History: Reports: None Immunologic History: Reports: None Oncologic (Cancer) History: Reports: None Dermatologic History: Reports: None - Infectious Disease History Infectious Disease History: Reports: Influenza, Measles, Novel Coronavirus - Past Surgical History Cardiovascular Surgical History: Reports: AAA Repair (Done in the [facility] in September 2019. There is some question as to whether the aneurysm repair went above the renal arteries.), Aneurysm (Hany aortic aneurysm) Female Surgical History: Reports: Other (See Below) (Transurethral resection of his prostate gland and done in 2013 in [place]. No cancer cells identified) Social & Family History - Family History Family Medical History: No Pertinent Family History - Tobacco Use Tobacco Use Status *Q: Former Tobacco User Used Tobacco, but Quit: No Second Hand Smoke Exposure: No - Caffeine Use Caffeine Use: Reports: Tea Other Caffeine Use: 2 cups of tea per day - Alcohol Use Days Per Week of Alcohol Use: 7 Number of Drinks Per Day: 1 Total Drinks Per Week: 7 - Recreational Drug Use Recreational Drug Use: Yes Drug Use in Last 12 Months: Yes Recreational Drug Type: Reports: Marijuana/Hashish Other Recreational Drug Type: states he smokes a joint a day but last one was 3- 4 months ago Recreational Drug Use Frequency: Weekly - Living Situation & Occupation Living situation: Reports: , with Spouse Occupation: Employed ([employer]) H&P Review of Systems - Review of Systems: Review Of Systems: See Below General: Reports: No Symptoms. Denies: Fever, Chills, Malaise, Weakness, Fatigue HEENT: Reports: No Symptoms. Denies: Headaches, Sore Throat Pulmonary: Reports: Wheezing (chronic ). Denies: Shortness of Breath, Pleuritic Chest Pain, Cough, Hemoptysis Cardiovascular: Reports: No Symptoms. Denies: Dyspnea on Exertion, Edema Gastrointestinal: Reports: No Symptoms. Denies: Abdominal Pain, Constipation, Diarrhea, Nausea, Vomiting Genitourinary: Reports: No Symptoms. Denies: Pain Musculoskeletal: Reports: No Symptoms Skin: Reports: No Symptoms. Denies: Cyanosis Psychiatric: Reports: No Symptoms. Denies: Confusion Neurological: Reports: No Symptoms. Denies: Pre-Existing Deficit, Trouble Speaking, Difficulty Walking, Weakness, Gait Disturbance Hematologic/Lymphatic: Reports: No Symptoms Immunologic: Reports: No Symptoms Exam - Exam Exam: See Below - Vital Signs Vital Signs: Last Vital Signs Temp 98.4 F 11/12/20 04:02 Pulse 73 11/12/20 08:05 Resp 18 11/12/20 04:02 BP 124/75 11/12/20 08:05 Pulse Ox 98 11/12/20 04:02 Weight: 157 lb 8 oz - Exam Quality Assessment: DVT Prophylaxis (SCDs ). No: Supplemental Oxygen, Urinary Catheter General: Alert, Oriented, Cooperative. No: Mild Distress HEENT: Conjunctiva Clear, EACs Clear, Mucosa Moist & [place], Posterior Pharynx Clear Neck: Supple, Trachea Midline Lungs: Clear to Auscultation, Normal Respiratory Effort, Decreased Breath Sounds, Wheezing (mild end expiratory ) Cardiovascular: Regular Rate, Regular Rhythm GI/Abdominal Exam: Normal Bowel Sounds, Soft, Non-Tender, No Distention (Male) Exam: Deferred Rectal (Males) Exam: Deferred Back Exam: Normal Inspection, Full Range of Motion Extremities: Normal Inspection, Normal Range of Motion, Non-Tender, No Pedal Edema, Normal Capillary Refill Peripheral Pulses: 2+: Radial (L), Radial (R) Skin: Warm, Dry, Intact Neurological: Cranial Nerves Intact (Grossly ) Neuro Extensive - Mental Status: Alert, Oriented x3 - Patient Data Lab Results Last 24 hrs: Laboratory Results - last 24 hr 11/11/20 11/11/20 11/11/20 Range/Units 17:34 17:34 17:34 WBC 7.33 (4.23-9.07) K/mm3 RBC 2.26 L (4.63-6.08) M/mm3 Hgb 4.7 L* D (13.7-17.5) gm/dl Hct 16.8 L (40.1-51.0) % MCV 74.3 L D (79.0-92.2) fl MCH 20.8 L (25.7-32.2) pg MCHC 28.0 L (32.2-35.5) g/dl RDW Std Deviation 48.1 H (35.1-43.9) fL Plt Count 381 H D (163-337) K/mm3 MPV 10.1 (9.4-12.3) fl Neut % (Auto) 65.7 (34.0-67.9) % Lymph % (Auto) 17.5 L (21.8-53.1) % [place] % (Auto) 12.3 H (5.3-12.2) % Eos % (Auto) 4.0 (0.8-7.0) Baso % (Auto) 0.4 (0.1-1.2) % Neut # (Auto) 4.82 (1.78-5.38) K/mm3 Lymph # (Auto) 1.28 L (1.32-3.57) K/mm3 [place] # (Auto) 0.90 H (0.30-0.82) K/mm3 Eos # (Auto) 0.29 (0.04-0.54) K/mm3 Baso # (Auto) 0.03 (0.01-0.08) K/mm3 Manual Slide Review Abnormal smear ESR (0-15) mm/hr Percent Retic 2.44 H (0.51-1.81) % PT 15.2 H (9.7-12.0) SECONDS INR 1.43 APTT 26.8 (21.7-31.4) SECONDS Sodium 140 (136-145) mEq/L Potassium 4.0 (3.5-5.1) mEq/L Chloride 103 (98-107) mEq/L Carbon Dioxide 24 (21-32) mEq/L Anion Gap 17.0 H (5-15) BUN 28 H (7-18) mg/dL Creatinine 2.6 H (0.7-1.3) mg/dL Est Cr Clr Drug Dosing 27.75 mL/min Estimated GFR (MDRD) 24 (>60) mL/min BUN/Creatinine Ratio 10.8 L (14-18) Glucose 129 H (83-115) mg/dL Calcium 8.8 (8.5-10.1) mg/dL Magnesium 2.2 (1.8-2.4) mg/dl Iron (65-175) ug/dL TIBC (100-400) ug/dL % Saturation (20-55) % Transferrin (202-364) mg/dL Total Bilirubin 0.5 (0.2-1.0) mg/dL AST 16 (15-37) U/L ALT 76 H (16-63) U/L Alkaline Phosphatase 72 (46-116) U/L Lactate Dehydrogenase (85-227) U/L C-Reactive Protein 0.3 (<1.0) mg/dL NT-Pro-B Natriuret Pep (0-125) pg/mL Total Protein 7.2 (6.4-8.2) g/dl Albumin 3.4 (3.4-5.0) g/dl Globulin 3.8 gm/dL Albumin/Globulin Ratio 0.9 L (1-2) TSH 3rd Generation (0.358-3.74) uIU/mL SARS-CoV-2 RNA ([place]) (NEGATIVE) Blood Type Gel Antibody Screen Crossmatch 11/11/20 11/11/20 11/11/20 Range/Units 17:34 17:34 17:34 WBC (4.23-9.07) K/mm3 RBC (4.63-6.08) M/mm3 Hgb (13.7-17.5) gm/dl Hct (40.1-51.0) % MCV (79.0-92.2) fl MCH (25.7-32.2) pg MCHC (32.2-35.5) g/dl RDW Std Deviation (35.1-43.9) fL Plt Count (163-337) K/mm3 MPV (9.4-12.3) fl Neut % (Auto) (34.0-67.9) % Lymph % (Auto) (21.8-53.1) % [place] % (Auto) (5.3-12.2) % Eos % (Auto) (0.8-7.0) Baso % (Auto) (0.1-1.2) % Neut # (Auto) (1.78-5.38) K/mm3 Lymph # (Auto) (1.32-3.57) K/mm3 [place] # (Auto) (0.30-0.82) K/mm3 Eos # (Auto) (0.04-0.54) K/mm3 Baso # (Auto) (0.01-0.08) K/mm3 Manual Slide Review ESR 44 H (0-15) mm/hr Percent Retic (0.51-1.81) % PT (9.7-12.0) SECONDS INR APTT (21.7-31.4) SECONDS Sodium (136-145) mEq/L Potassium (3.5-5.1) mEq/L Chloride (98-107) mEq/L Carbon Dioxide (21-32) mEq/L Anion Gap (5-15) BUN (7-18) mg/dL Creatinine (0.7-1.3) mg/dL Est Cr Clr Drug Dosing mL/min Estimated GFR (MDRD) (>60) mL/min BUN/Creatinine Ratio (14-18) Glucose (83-115) mg/dL Calcium (8.5-10.1) mg/dL Magnesium (1.8-2.4) mg/dl Iron 14 L (65-175) ug/dL TIBC 439 H (100-400) ug/dL % Saturation 3 L (20-55) % Transferrin 351 (202-364) mg/dL Total Bilirubin (0.2-1.0) mg/dL AST (15-37) U/L ALT (16-63) U/L Alkaline Phosphatase (46-116) U/L Lactate Dehydrogenase (85-227) U/L C-Reactive Protein (<1.0) mg/dL NT-Pro-B Natriuret Pep 1663 H (0-125) pg/mL Total Protein (6.4-8.2) g/dl Albumin (3.4-5.0) g/dl Globulin gm/dL Albumin/Globulin Ratio (1-2) TSH 3rd Generation (0.358-3.74) uIU/mL SARS-CoV-2 RNA ([place]) (NEGATIVE) Blood Type Gel Antibody Screen Crossmatch 11/11/20 11/11/20 11/11/20 Range/Units 17:34 17:34 17:34 WBC (4.23-9.07) K/mm3 RBC (4.63-6.08) M/mm3 Hgb (13.7-17.5) gm/dl Hct (40.1-51.0) % MCV (79.0-92.2) fl MCH (25.7-32.2) pg MCHC (32.2-35.5) g/dl RDW Std Deviation (35.1-43.9) fL Plt Count (163-337) K/mm3 MPV (9.4-12.3) fl Neut % (Auto) (34.0-67.9) % Lymph % (Auto) (21.8-53.1) % [place] % (Auto) (5.3-12.2) % Eos % (Auto) (0.8-7.0) Baso % (Auto) (0.1-1.2) % Neut # (Auto) (1.78-5.38) K/mm3 Lymph # (Auto) (1.32-3.57) K/mm3 [place] # (Auto) (0.30-0.82) K/mm3 Eos # (Auto) (0.04-0.54) K/mm3 Baso # (Auto) (0.01-0.08) K/mm3 Manual Slide Review ESR (0-15) mm/hr Percent Retic (0.51-1.81) % PT (9.7-12.0) SECONDS INR APTT (21.7-31.4) SECONDS Sodium (136-145) mEq/L Potassium (3.5-5.1) mEq/L Chloride (98-107) mEq/L Carbon Dioxide (21-32) mEq/L Anion Gap (5-15) BUN (7-18) mg/dL Creatinine (0.7-1.3) mg/dL Est Cr Clr Drug Dosing mL/min Estimated GFR (MDRD) (>60) mL/min BUN/Creatinine Ratio (14-18) Glucose (83-115) mg/dL Calcium (8.5-10.1) mg/dL Magnesium (1.8-2.4) mg/dl Iron (65-175) ug/dL TIBC (100-400) ug/dL % Saturation (20-55) % Transferrin (202-364) mg/dL Total Bilirubin (0.2-1.0) mg/dL AST (15-37) U/L ALT (16-63) U/L Alkaline Phosphatase (46-116) U/L Lactate Dehydrogenase 219 (85-227) U/L C-Reactive Protein (<1.0) mg/dL NT-Pro-B Natriuret Pep (0-125) pg/mL Total Protein (6.4-8.2) g/dl Albumin (3.4-5.0) g/dl Globulin gm/dL Albumin/Globulin Ratio (1-2) TSH 3rd Generation 1.687 (0.358-3.74) uIU/mL SARS-CoV-2 RNA ([place]) (NEGATIVE) Blood Type AB NEGATIVE Gel Antibody Screen Negative Crossmatch See Detail 11/11/20 11/12/20 Range/Units 18:00 07:42 WBC 9.22 H (4.23-9.07) K/mm3 RBC 4.04 L (4.63-6.08) M/mm3 Hgb 9.7 L D (13.7-17.5) gm/dl Hct 31.5 L (40.1-51.0) % MCV 78.0 L D (79.0-92.2) fl MCH 24.0 L (25.7-32.2) pg MCHC 30.8 L (32.2-35.5) g/dl RDW Std Deviation 54.8 H (35.1-43.9) fL Plt Count 377 H (163-337) K/mm3 MPV 10.1 (9.4-12.3) fl Neut % (Auto) 66.2 (34.0-67.9) % Lymph % (Auto) 15.7 L (21.8-53.1) % [place] % (Auto) 13.2 H (5.3-12.2) % Eos % (Auto) 4.3 (0.8-7.0) Baso % (Auto) 0.4 (0.1-1.2) % Neut # (Auto) 6.09 H (1.78-5.38) K/mm3 Lymph # (Auto) 1.45 (1.32-3.57) K/mm3 [place] # (Auto) 1.22 H (0.30-0.82) K/mm3 Eos # (Auto) 0.40 (0.04-0.54) K/mm3 Baso # (Auto) 0.04 (0.01-0.08) K/mm3 Manual Slide Review ESR (0-15) mm/hr Percent Retic (0.51-1.81) % PT (9.7-12.0) SECONDS INR APTT (21.7-31.4) SECONDS Sodium (136-145) mEq/L Potassium (3.5-5.1) mEq/L Chloride (98-107) mEq/L Carbon Dioxide (21-32) mEq/L Anion Gap (5-15) BUN (7-18) mg/dL Creatinine (0.7-1.3) mg/dL Est Cr Clr Drug Dosing mL/min Estimated GFR (MDRD) (>60) mL/min BUN/Creatinine Ratio (14-18) Glucose (83-115) mg/dL Calcium (8.5-10.1) mg/dL Magnesium (1.8-2.4) mg/dl Iron (65-175) ug/dL TIBC (100-400) ug/dL % Saturation (20-55) % Transferrin (202-364) mg/dL Total Bilirubin (0.2-1.0) mg/dL AST (15-37) U/L ALT (16-63) U/L Alkaline Phosphatase (46-116) U/L Lactate Dehydrogenase (85-227) U/L C-Reactive Protein (<1.0) mg/dL NT-Pro-B Natriuret Pep (0-125) pg/mL Total Protein (6.4-8.2) g/dl Albumin (3.4-5.0) g/dl Globulin gm/dL Albumin/Globulin Ratio (1-2) TSH 3rd Generation (0.358-3.74) uIU/mL SARS-CoV-2 RNA ([place]) Negative (NEGATIVE) Blood Type Gel Antibody Screen Crossmatch Result Diagrams: 11/12/20 07:42 11/12/20 07:42 Sepsis Event Note - Evaluation Sepsis Screening Result: No Definite Risk - Focused Exam Vital Signs: Vital Signs Temp Pulse Pulse Resp BP BP Pulse Ox 11/12/20 08:05 73 124/75 11/12/20 08:04 124/75 11/12/20 04:02 98.4 F 68 18 126/80 98 11/12/20 04:00 98.4 F 68 13 126/80 11/12/20 03:00 13 11/12/20 02:00 20 11/12/20 01:58 98.4 F 65 17 139/68 94 L 11/12/20 01:57 98.4 F 65 17 139/68 96 11/12/20 01:41 98.4 F 67 12 136/64 97 11/12/20 01:25 98.4 F 54 L 17 136/64 11/12/20 01:24 98.2 F 67 13 147/67 H 99 11/12/20 01:00 30 H 11/12/20 00:00 17 11/11/20 23:00 98.2 F 67 19 147/67 H 99 11/11/20 22:56 98.2 F 70 18 120/79 95 11/11/20 22:49 14 11/11/20 22:41 98.1 F 69 12 135/77 97 11/11/20 22:40 98.1 F 70 16 135/77 96 11/11/20 22:18 98.2 F 67 16 130/66 97 11/11/20 22:17 98.2 F 67 13 130/66 97 11/11/20 22:00 18 11/11/20 21:59 69 12 99 11/11/20 21:55 24 H 11/11/20 21:32 98.2 F 73 16 139/112 H 95 11/11/20 20:18 97.8 F 72 12 129/65 - Problem List (1) HLD (hyperlipidemia) SNOMED Code(s): 35121688 ICD Code: E78.5 - HYPERLIPIDEMIA, UNSPECIFIED Status: Chronic Priority: Low Current Visit: No Qualifiers: Hyperlipidemia type: unspecified Qualified Code(s): E78.5 - Hyperlipidemia, unspecified (2) HTN (hypertension) SNOMED Code(s): 14087650 ICD Code: I10 - ESSENTIAL (PRIMARY) HYPERTENSION Status: Chronic Priority: Medium Current Visit: No Qualifiers: Hypertension type: unspecified Qualified Code(s): I10 - Essential (primary) hypertension (3) Asthma SNOMED Code(s): 192270792 ICD Code: J45.909 - UNSPECIFIED ASTHMA, UNCOMPLICATED Status: Chronic Priority: Medium Current Visit: No Qualifiers: Asthma severity: unspecified severity Asthma persistence: unspecified Asthma complication type: unspecified Qualified Code(s): J45.909 - Unspecified asthma, uncomplicated (4) Pulmonary nodule, right SNOMED Code(s): 490292347 ICD Code: R91.1 - SOLITARY PULMONARY NODULE Status: Chronic Priority: Low Current Visit: No (5) BPH (benign prostatic hyperplasia) SNOMED Code(s): 825292313 ICD Code: N40.0 - BENIGN PROSTATIC HYPERPLASIA WITHOUT LOWER URINRY TRACT SYMP Status: Chronic Priority: Low Current Visit: No Qualifiers: Lower urinary tract symptom presence: unspecified whether lower urinary tract symptoms present Qualified Code(s): N40.0 - Benign prostatic hyperplasia without lower urinary tract symptoms (6) S/P TURP SNOMED Code(s): 979045404, 90949148, 342342772 ICD Code: Z90.79 - ACQUIRED ABSENCE OF OTHER GENITAL ORGAN(S) Status: Chronic Priority: Low Current Visit: No (7) CKD (chronic kidney disease), stage IV SNOMED Code(s): 882615683 ICD Code: N18.4 - CHRONIC KIDNEY DISEASE, STAGE 4 (SEVERE) Status: Chronic Priority: Medium Current Visit: No (8) Hypertrophic kidney SNOMED Code(s): 99513740 ICD Code: N28.81 - HYPERTROPHY OF KIDNEY Status: Chronic Priority: Low Current Visit: No (9) Agenesis of left kidney SNOMED Code(s): 082957592 ICD Code: Q60.0 - RENAL AGENESIS, UNILATERAL Status: Chronic Priority: Low Current Visit: No (10) History of abdominal aortic aneurysm (AAA) repair SNOMED Code(s): 243418073 ICD Code: Z98.890 - OTHER SPECIFIED POSTPROCEDURAL STATES Status: Chronic Priority: Low Current Visit: No (11) Anemia SNOMED Code(s): 359569627 ICD Code: D64.9 - ANEMIA, UNSPECIFIED Status: Acute Priority: High Current Visit: Yes Qualifiers: Anemia type: iron deficiency Iron deficiency anemia type: unspecified iron deficiency Qualified Code(s): D50.9 - Iron deficiency anemia, unspecified (12) Chronic obstructive pulmonary disease (COPD) SNOMED Code(s): 42743112 ICD Code: J44.9 - CHRONIC OBSTRUCTIVE PULMONARY DISEASE, UNSPECIFIED Status: Chronic Priority: Medium Current Visit: No Qualifiers: COPD type: emphysema Emphysema type: panlobular Qualified Code(s): J43.1 - Panlobular emphysema (13) Chronic renal insufficiency, stage IV (severe) SNOMED Code(s): 374087144 ICD Code: N18.4 - CHRONIC KIDNEY DISEASE, STAGE 4 (SEVERE) Status: Chronic Priority: Medium Current Visit: No Problem List Initiated/Reviewed/Updated: Yes Orders Last 24hrs: Active Orders 24 hr Category Date Time Status Admission Status [Patient Status] [ADT] Routine ADT 11/11/20 20:25 Active Antiembolic Devices [RC] PER UNIT ROUTINE Care 11/11/20 21:52 Active Oxygen Therapy [RC] PRN Care 11/11/20 21:51 Active RT Aerosol Therapy [RC] ASDIRECTED Care 11/11/20 21:52 Active Up With Assistance [RC] ASDIRECTED Care 11/11/20 21:51 Active VTE/DVT Education [RC] PER UNIT ROUTINE Care 11/11/20 21:51 Active Vital Signs [RC] Q4HR Care 11/11/20 21:51 Active Regular Diet [DIET] Diet 11/12/20 Breakfast Active BASIC METABOLIC PANEL,BMP [CHEM] Routine Lab 11/12/20 07:10 Ordered CBC WITH AUTO DIFF [HEME] Routine Lab 11/12/20 07:42 Results MAGNESIUM [CHEM] Routine Lab 11/12/20 07:10 Ordered PACKED CELLS [RED BLOOD CELLS LP] [BBK] Stat Lab 11/11/20 17:34 Results TYPE AND SCREEN [BBK] Stat Lab 11/11/20 17:34 Results Acetaminophen [TylenoL] Med 11/11/20 21:51 Active 650 mg PO Q4H PRN Albuterol [Proventil Neb Soln] Med 11/11/20 21:51 Active 2.5 mg NEB Q2H PRN Albuterol/Ipratropium [DuoNeb 3.0-0.5 MG/3 ML] Med 11/11/20 21:51 Active 3 ml NEB Q4H PRN Mometasone/Formoterol [Dulera 100-5 MCG] Med 11/12/20 09:00 Active 2 puff IH BID Montelukast [Singulair] Med 11/12/20 21:00 Active 10 mg PO BEDTIME Ondansetron [Zofran] Med 11/11/20 21:51 Active 4 mg IV Q4H PRN Sodium Bicarbonate Med 11/12/20 09:00 Active 650 mg PO TID Thiamine [Vitamin B-1] Med 11/12/20 09:00 Active 100 mg PO DAILY Tiotropium [place] [Spiriva Respimat] Med 11/12/20 09:00 Active 0 gm INH DAILY amLODIPine [Norvasc] Med 11/12/20 09:00 Active 10 mg PO DAILY atenoloL [Tenormin] Med 11/12/20 09:00 Active 25 mg PO DAILY atorvaSTATin [Lipitor] Med 11/12/20 09:00 Active 40 mg PO DAILY calcitrioL [Rocaltrol] Med 11/12/20 09:00 Active 0.25 mcg PO [id number]@[id number] Sequential Compression Device [OM.PC] Per Unit Routine Oth 11/11/20 21:52 Ordered Resuscitation Status Routine Resus Stat 11/11/20 21:51 Ordered Medication Orders Acetaminophen (Acetaminophen 325 Mg Tab) 650 mg PO Q4H PRN PRN Reason: Pain (Mild 1-3)/fever Albuterol (Albuterol 0.083% 2.5 Mg/3 Ml Neb Soln) 2.5 mg NEB Q2H PRN PRN Reason: Shortness Of Breath/wheezing Albuterol/Ipratropium (Albuterol/Ipratropium 3.0-0.5 Mg/3 Ml Neb Soln) 3 ml NEB Q4H PRN PRN Reason: Shortness Of Breath/wheezing Amlodipine Besylate (Amlodipine 10 Mg Tab) 10 mg PO DAILY [facility] Last Admin: 11/12/20 08:04 Dose: 10 mg Documented by: RAJESH Atenolol (Atenolol 25 Mg Tab) 25 mg PO DAILY [facility] Last Admin: 11/12/20 08:05 Dose: 25 mg Documented by: RAJESH Atorvastatin Calcium (Atorvastatin 40 Mg Tab) 40 mg PO DAILY [facility] Last Admin: 11/12/20 08:04 Dose: 40 mg Documented by: RAJESH Calcitriol (Calcitriol 0.25 Mcg Cap) 0.25 mcg PO MoWeFr@0900 [facility] Last Admin: 11/12/20 08:04 Dose: 0.25 mcg Documented by: RAJESH Mometasone Furoate/Formoterol Fumar (Formoterol/Mometasone 100-5 Mcg 8.8 Gm Inhaler) 2 puff IH BID [facility] Montelukast Sodium (Montelukast 10 Mg Tab) 10 mg PO BEDTIME [facility] Ondansetron HCl (Ondansetron 4 Mg/2 Ml Sdv) 4 mg IV Q4H PRN PRN Reason: Nausea/Vomiting Sodium Bicarbonate (Sodium Bicarbonate 650 Mg Tab) 650 mg PO TID [facility] Last Admin: 11/12/20 08:05 Dose: 650 mg Documented by: RAJESH Thiamine HCl (Thiamine 100 Mg Tab) 100 mg PO DAILY [facility] Last Admin: 11/12/20 08:04 Dose: 100 mg Documented by: RAJESH Tiotropium [place] (Tiotropium [place] 4 Gm Inhalation [place] (2.5mcg/1 Dose; 10 Doses)) 0 gm INH DAILY [facility] Assessment/Plan Comment:: Assessment - 11/12/2020 (admitted evening of 11/11/2020) * 70 yo male presents to ED at request of PCP with low hemoglobin/fatigue/shortness of breath. * Seen by pulmonary in [place] and noted to have hemoglobin of 5.0sent to [facility] in [place] * Hemoglobin noted to be 4.8 at [facility] and therefore sent to ED. * Denies hematemesis, hematochezia, melena. * Reports last colonoscopy was 1.52 years ago with 1 polyp removed but no other findings. * Denies any upper GI symptoms. * Carries history of HLD, HTN, asthma, COPD, right pulmonary nodule, BPH, stage IV CKD, left kidney agenesis, hypertrophic right kidney, AAA repair at [facility] in September 2019, TURP in [place] in 2013. * Twelve-lead EKG shows sinus rhythm at 62 bpm with frequent premature supraventricular contractions. First-degree AV block is noted and Q waves in V1 and V2 seen. Prominent R wave in V4 and ST segment depression in V3 to V6. * Chest x-ray obtained from day prior in [place] shows hyperinflated lung rojo and no signs of infiltrates. Cardiac silhouette is mildly enlarged. * Labs in ED and on floor: * WBC 7.33--> 9.22 * Hemoglobin 4.7--> 9.7 (S/P 3 units PRBC) * Hematocrit 16.8-->31.5 * Platelet 381,000-->377,000. * Neutrophils 65.7%-->66.2% * Reticulocyte count of 2.44. * INR 1.43. * APTT 26.8. * Sodium 140--> 137 * Potassium 4.0-->3.6 * Chloride 103-->101 * Carbon dioxide 24-->21 * Anion gap 17.0-->18.6 * BUN 28-->25 * Creatinine 2.6 -->2.5 * GFR 24-->26 * Glucose 129-->95 * Magnesium 2.2-->2.1 * Total bilirubin 0.5. * AST 16, ALT 76, alkaline phosphatase 72. * CRP 0.3. * Albumin 3.4. * ESR 44. * Iron 14, TIBC 439, percent saturation 3%, transferrin 351. * proBNP 1663. * TSH 1.687. * SARS-CoV-2 RNA negative. * Blood type AB- with negative gel antibody screen. * Given 3 units of packed red cells with tonic 40 mg Lasix IVP between x2 * Follows Dr. Aparicio [address] Joel for pulmonary. * Admitted observation status on telemetry for anemia work-up and blood transfusion. PLAN: Anemia * Labs this AM show improvement S/P 3 units PRBCs. * Occult stool * F/U with PCP * Consider repeat colonoscopy outpatient * Monitor H/H * Monitor for melena/hematochezia * Telemetry HLD (hyperlipidemia) HTN (hypertension) * Continue home medications * Monitor vital signs Asthma Pulmonary nodule, right Chronic obstructive pulmonary disease (COPD) * Continue home respiratory medications * Will hold off steroids for now - respiratory symptoms were likely related to anemia and not COPD exacerbation CKD (chronic kidney disease), stage IV Hypertrophic kidney Agenesis of left kidney * Avoid nephrotoxic agents * Continue to monitor BPH (benign prostatic hyperplasia) S/P TURP * Home medications as ordered * No acute concerns History of abdominal aortic aneurysm (AAA) repair * No acute concerns Code Status: Full code PCP: Dr. Manzanares Claims Vice President: Dr. Aparicio Workforce Development Specialist: Dr. Joel DVT prophylaxis: SCDs Disposition: Patient admitted observation status on telemetry for management of anemia and infusion of PRBCs. LOS likely 24-48 hours - Mortality Measure Prognosis:: Good
[2020-11-12 08:50] VITALS: BP 124/75; PULSE 73
[2020-11-12] MEDS ORDERED: Tiotropium Bromide 4 GM Inhalation Spray (2.5mcg/1 dose; 10 doses) INH SCH (09:00)
[2020-11-12] MEDS ORDERED: Formoterol/Mometasone 100-5 MCG 8.8 GM Inhaler IH SCH (09:00)
--- NOTE | 2020-11-12 12:17 | PCM.DCSUM1 ---
Discharge Summary - Hospital Course HPI Initial Comments: This is a 70-year-old male who presents to ED on 11/11/2020 with anemia, fatigue, and shortness of breath request of his primary care provider. He reportedly saw pulmonology in [place] today for COPD follow-up. He reports he was noting shortness of breath with minimal exertion such as going up 5 stairs, cramps, and feet and long bone pain in his lower legs. Denies any chest pain. He has been fatigued and reports symptoms have been ongoing and worsening over 6 to 8 weeks. Has received one of the 2 Covid vaccinations. 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 Patient does not feel that he is wheezing any worse than normal. Hemoglobin in [place] was 5.0 and he was told to report to the [facility], which she did. Hemoglobin there was noted to be 4.8 and he was sent to the emergency department. Denies any hematochezia or melena. Reports a colonoscopy approximately 1-1/2 to 2 years ago with 1 polyp removed but no other findings. No upper GI symptoms. He does report generalized pruritus likely due to uremia. He is followed by Dr. Aparicio who about every 3 to 4 months. He is reportedly supposed to start prednisone 20 mg twice daily for COPD exacerbation. In the ED temp was 36.6 Celsius. Pulse 72. Respirations 12. Blood pressure 129/65. Pulse ox 93%. Twelve-lead EKG was obtained showing a sinus rhythm with a rate of 62 and frequent premature supraventricular contractions likely PJCs noted. There is a first-degree AV block and near Q waves in V1 and V2. Early R wave transition with prominence of the R wave in V4 is noted and there is ST segment depression in V3 to V6. Labs are obtained: WBC is normal at 7.33. Hemoglobin very low at 4.7. Hematocrit 16.8. Platelets are high at 381,000. Neutrophils are 65.7. Reticulocyte count is high at 2.44. INR is 1.43. aPTT is 26.8. Sodium 140. Potassium 4.0. Chloride 103. Carbon dioxide 24. Anion gap is 17.0. BUN is high at 28. Creatinine high at 2.6. GFR is 24. Magnesium is 2.2. Total bilirubin 0.5. AST 16, ALT 76, alkaline phosphatase 72. Albumin is 3.4. ESR is 44. Iron is 14, TIBC is 439, percent saturation is 3%, transferrin is 351. proBNP is 1663. TSH is 1.678. SARS Covid 2 RNA is negative. He is AB- blood type. Chest x-ray is obtained earlier in the day in [place] and noted to show hyperinflated lung rojo with no signs of pulmonary infiltrates. Cardiac silhouette was noted to be enlarged. He was given 3 units of blood with 40 mg of IV Lasix in between. He subsequently mated to the medical floor for management of his anemia accompanied by stage IV CKD, COPD, and CHF. He is a full code. His PCP is Dr. Manzanares. He carries a history of HLD, HTN, asthma, COPD, emphysema, bronchitis, dyspnea, right pulmonary nodules, BPH, chronic renal insufficiency, akinesis of left kidney, hypertrophic right kidney AAA repair done in [facility] in September 2019, TURP performed in [place] in 2013, weekly marijuana use. Diagnosis: Stroke: No - Discharge Data Discharge Date: 11/12/20 (Admit date: 11/11/2020) Discharge Disposition: Home, Self-Care 01 Condition: Good - Referral to Home Health Primary Care Physician: Bony Manzanares Jr, MD - Discharge Diagnosis/Problem(s) (1) HLD (hyperlipidemia) SNOMED Code(s): 08097172 ICD Code: E78.5 - HYPERLIPIDEMIA, UNSPECIFIED Status: Chronic Priority: Low Current Visit: No Qualifiers: Hyperlipidemia type: unspecified Qualified Code(s): E78.5 - Hyperlipidemia, unspecified (2) HTN (hypertension) SNOMED Code(s): 05372262 ICD Code: I10 - ESSENTIAL (PRIMARY) HYPERTENSION Status: Chronic Priority: Medium Current Visit: No Qualifiers: Hypertension type: unspecified Qualified Code(s): I10 - Essential (primary) hypertension (3) Asthma SNOMED Code(s): 411649497 ICD Code: J45.909 - UNSPECIFIED ASTHMA, UNCOMPLICATED Status: Chronic Priority: Medium Current Visit: No Qualifiers: Asthma severity: unspecified severity Asthma persistence: unspecified Asthma complication type: unspecified Qualified Code(s): J45.909 - Unspecified asthma, uncomplicated (4) Pulmonary nodule, right SNOMED Code(s): 218497436 ICD Code: R91.1 - SOLITARY PULMONARY NODULE Status: Chronic Priority: Low Current Visit: No (5) BPH (benign prostatic hyperplasia) SNOMED Code(s): 914940560 ICD Code: N40.0 - BENIGN PROSTATIC HYPERPLASIA WITHOUT LOWER URINRY TRACT SYMP Status: Chronic Priority: Low Current Visit: No Qualifiers: Lower urinary tract symptom presence: unspecified whether lower urinary tract symptoms present Qualified Code(s): N40.0 - Benign prostatic hyperplasia without lower urinary tract symptoms (6) S/P TURP SNOMED Code(s): 036466468, 48584685, 015593767 ICD Code: Z90.79 - ACQUIRED ABSENCE OF OTHER GENITAL ORGAN(S) Status: Chronic Priority: Low Current Visit: No (7) CKD (chronic kidney disease), stage IV SNOMED Code(s): 419163688 ICD Code: N18.4 - CHRONIC KIDNEY DISEASE, STAGE 4 (SEVERE) Status: Chronic Priority: Medium Current Visit: No (8) Hypertrophic kidney SNOMED Code(s): 41792297 ICD Code: N28.81 - HYPERTROPHY OF KIDNEY Status: Chronic Priority: Low Current Visit: No (9) Agenesis of left kidney SNOMED Code(s): 458511770 ICD Code: Q60.0 - RENAL AGENESIS, UNILATERAL Status: Chronic Priority: Low Current Visit: No (10) History of abdominal aortic aneurysm (AAA) repair SNOMED Code(s): 718522405 ICD Code: Z98.890 - OTHER SPECIFIED POSTPROCEDURAL STATES Status: Chronic Priority: Low Current Visit: No (11) Anemia SNOMED Code(s): 950337024 ICD Code: D64.9 - ANEMIA, UNSPECIFIED Status: Acute Priority: High Current Visit: Yes Qualifiers: Anemia type: iron deficiency Iron deficiency anemia type: unspecified iron deficiency Qualified Code(s): D50.9 - Iron deficiency anemia, unspecified (12) Chronic obstructive pulmonary disease (COPD) SNOMED Code(s): 18821095 ICD Code: J44.9 - CHRONIC OBSTRUCTIVE PULMONARY DISEASE, UNSPECIFIED Status: Chronic Priority: Medium Current Visit: No Qualifiers: COPD type: emphysema Emphysema type: panlobular Qualified Code(s): J43.1 - Panlobular emphysema (13) Chronic renal insufficiency, stage IV (severe) SNOMED Code(s): 116107597 ICD Code: N18.4 - CHRONIC KIDNEY DISEASE, STAGE 4 (SEVERE) Status: Chronic Priority: Medium Current Visit: No - Patient Summary/Data Labs Pending at D/C: None Recommended Follow-up Testing/Procedures: Follow up with primary care provider within 5-7 days, sooner if needed. -Patient was following Dr. Manzanares who retired, would now like to see Dr. Liu -Repeat H/H ordered for 11/15/20 -Occult stool ordered and cards sent with patient -Advised patient to check BP BID and bring this with to all medical appointments Consider outpatient colonoscopy pending results of occult stool. Hospital Course: This is a 70-year-old male who presents to ED on the evening of 11/11/2020 with low hemoglobin, fatigue, and shortness of breath. He had reportedly been seen by his usual pulmonary physician commercial assistant in [place] and was started on azithromycin and a steroid for suspected COPD exacerbation. Unexpectedly patient's hemoglobin returned 4.8 and patient was instructed by this provider to present to the [facility] walk-in locally here in [place]. Once there patient's hemoglobin was noted to be 0.8 and he was sent to our emergency room. Recheck of the labs there showed a hemoglobin of 4.7 with hematocrit of 16.8. Patient had denied any obvious bleeding, including hematemesis, hematochezia, or melena. Reports his last colonoscopy was 1.5 to 2 years ago with 1 polyp removed but no other findings. He has a rather complex history including HLD, HTN, asthma, COPD, right pulmonary nodule, BPH, CKD stage IV, left kidney agenesis, hypertrophic right kidney, AAA repair at [facility] in September 2019, and TURP in [place] in 2013. Patient was given 3 units of blood total with 40 mg IV push Lasix midway and 40 mg push IV Lasix after completion of transfusion. This improved his hemoglobin to 9.7 with a hematocrit of 31.5. This is a much higher number than anticipated given the 3 units it is suspected that this will likely normalize out throughout the next few days. Plan was to check occult stool and provide further work-up for cause of bleeding. However, patient was adamant about being discharged today and wants to follow-up outpatient for further testing. Risk of continued bleeding was discussed with the patient. He is on Xarelto which she reports he has been on since his abdominal aortic aneurysm repair at [facility]. He states that he was switched to Eliquis temporarily but forgot to take his second dose and therefore was switched back to Xarelto. Given the patient's current low hemoglobin and concerns over him actively bleeding we will hold this and he may follow-up with his primary care provider in the future to resume. Unfortunately patient's primary care provider, Dr. Manzanares, has retired and so we discussed to the patient would like to see. He ultimately decided on Dr. Liu at [facility]. Unfortunately Dr. Brown is booked out for some time and patient is on amendable to seeing any provider sooner. Patient was therefore placed on waiting list by case management and instructed on what to follow-up on should patient's symptoms return or he note any acute bleeding. Repeat H&H was ordered for next 11/15/2020. Patient was sent home with 3 occult stool cards and instructed how to utilize these. He will return these cards here and we will follow-up with him at that time. All other home medications were continued. Patient also noted that he has been having some concerns over his blood pressure medication and also itching which has come and gone for some time. We discussed how it is hard to get a good baseline given how low severe his anemia was and given no obvious bleeds this likely has been trickling down for some time. This is also emphasized by the fact that the patient was doing relatively well with such low hemoglobin. He was instructed to take his blood pressure twice daily and record this in a journal, bring this with to all medical appointments. Was advised that he may consider Benadryl for itching as needed [id number]. Was advised to continue following up with nephrology and pulmonary as directed. Discharged home today as the patient was adamant about leaving. - Patient Instructions Diet: Usual Diet as Tolerated Activity: As Tolerated Driving: Do Not Drive (today) Showering/Bathing: May Shower Notify Provider of: Fever, Increased Pain, Nausea and/or Vomiting Other/Special Instructions: Follow-up with primary care provider as scheduled. Resume home medications as directed. Stop taking your xarelto until you discuss it with your primary care provider. You do not need to take your new azithromycin and steroid you were prescribed in [place]. This is not a COPD exacerbation. Obtain your stool on the cards you were provided to check for blood in your stool. Return these as indicated. We have ordered repeat a hemoglobin check on 11/15/20. Come to our hospital for this. Take your blood pressure twice daily as we discussed and record this in a journal. Bring this with to all medical appointments. Should symptoms return or worsen contact primary care provider or return to the Emergnecy Department. - Discharge Plan *PRESCRIPTION DRUG MONITORING PROGRAM REVIEWED*: No *COPY OF PRESCRIPTION DRUG MONITORING REPORT IN PATIENT ENEDINA: No Home Medications: Home Meds Albuterol [Ventolin HFA] 2 puff INH Q6H PRN 05/14/17 [History] Aspirin 81 mg PO DAILY 05/14/17 [History] Thiamine Mononitrate (Vit B1) [Vitamin B-1] 100 mg PO DAILY 05/14/17 [History] amLODIPine [Norvasc] 10 mg PO DAILY 05/14/17 [History] atenoloL [Atenolol] 25 mg PO DAILY 05/14/17 [History] Montelukast [Singulair] 10 mg PO DAILY 07/24/17 [History] atorvaSTATin [Lipitor] 40 mg PO DAILY 07/24/17 [History] Calcium Carb/Vitamin D3/Vit K1 [Calcium + D Soft Chewable Tab] 1 tab PO DAILY 01/30/19 [History] Tiotropium [place] [Spiriva Respimat] 2 puff INH DAILY 01/30/19 [History] Docusate Sodium 100 mg PO DAILY 11/11/20 [History] Fluticasone/Vilanterol [Breo Ellipta 100-25 MCG Inhalation Kit] 1 puff INH DAILY 11/11/20 [History] Sodium Bicarbonate 650 mg PO TID 11/11/20 [History] calcitrioL [Rocaltrol] 0.25 mcg PO MOWEFR 11/11/20 [History] Oxygen Therapy Mode: Room Air Patient Handouts: Chronic Obstructive Pulmonary Disease, Heart Failure, Self Care, Stool for Occult Blood Test Referrals: Corey Aparicio MD [Ordering Only Provider] - (Continue to follow up as needed, this is patients residential program coordinator.) Kavon Liu MD [Ordering Only Provider] - 11/24/20 9:00 am (patient has been added to wait list.) - Discharge Summary/Plan Comment DC Time >30 min.: Yes (45 mins ) - General Info Date of Service: 11/12/20 Admission Dx/Problem (Free Text: Admission Diagnosis/Problem Admission Diagnosis/Problem Anemia Functional Status: Reports: Pain Controlled, Tolerating Diet, Ambulating, Urinating. Denies: New Symptoms - Review of Systems General: Reports: No Symptoms. Denies: Fever, Weakness, Fatigue, Malaise, Chills HEENT: Reports: No Symptoms. Denies: Headaches, Sore Throat Pulmonary: Reports: Wheezing (baseline ). Denies: Shortness of Breath, Pleuritic Chest Pain, Cough, Sputum Cardiovascular: Reports: No Symptoms. Denies: Chest Pain, Palpitations, Dyspnea on Exertion, Edema Gastrointestinal: Reports: No Symptoms. Denies: Abdominal Pain, Constipation, Diarrhea, Nausea, Vomiting Genitourinary: Reports: No Symptoms. Denies: Pain Musculoskeletal: Reports: No Symptoms Skin: Reports: No Symptoms. Denies: Cyanosis Neurological: Denies: Confusion, Pre-Existing Deficit, Trouble Speaking, Difficulty Walking, Weakness, Gait Disturbance Psychiatric: Reports: No Symptoms - Patient Data Vitals - Most Recent: Last Vital Signs Temp 98.4 F 11/12/20 07:49 Pulse 73 11/12/20 07:49 Resp 16 11/12/20 10:00 BP 124/75 11/12/20 07:49 Pulse Ox 94 L 11/12/20 07:49 Weight - Most Recent: 157 lb 8 oz I&O - Last 24 hours: Intake & Output 11/11/20 11/12/20 11/12/20 22:59 06:59 14:59 Intake Total 360 1320 Balance 360 1320 Lab Results - Last 24 hrs: Laboratory Results - last 24 hr 11/11/20 11/11/20 11/11/20 Range/Units 17:34 17:34 17:34 WBC 7.33 (4.23-9.07) K/mm3 RBC 2.26 L (4.63-6.08) M/mm3 Hgb 4.7 L* D (13.7-17.5) gm/dl Hct 16.8 L (40.1-51.0) % MCV 74.3 L D (79.0-92.2) fl MCH 20.8 L (25.7-32.2) pg MCHC 28.0 L (32.2-35.5) g/dl RDW Std Deviation 48.1 H (35.1-43.9) fL Plt Count 381 H D (163-337) K/mm3 MPV 10.1 (9.4-12.3) fl Neut % (Auto) 65.7 (34.0-67.9) % Lymph % (Auto) 17.5 L (21.8-53.1) % Moffat % (Auto) 12.3 H (5.3-12.2) % Eos % (Auto) 4.0 (0.8-7.0) Baso % (Auto) 0.4 (0.1-1.2) % Neut # (Auto) 4.82 (1.78-5.38) K/mm3 Lymph # (Auto) 1.28 L (1.32-3.57) K/mm3 Moffat # (Auto) 0.90 H (0.30-0.82) K/mm3 Eos # (Auto) 0.29 (0.04-0.54) K/mm3 Baso # (Auto) 0.03 (0.01-0.08) K/mm3 Manual Slide Review Abnormal smear ESR (0-15) mm/hr Percent Retic 2.44 H (0.51-1.81) % PT 15.2 H (9.7-12.0) SECONDS INR 1.43 APTT 26.8 (21.7-31.4) SECONDS Sodium 140 (136-145) mEq/L Potassium 4.0 (3.5-5.1) mEq/L Chloride 103 (98-107) mEq/L Carbon Dioxide 24 (21-32) mEq/L Anion Gap 17.0 H (5-15) BUN 28 H (7-18) mg/dL Creatinine 2.6 H (0.7-1.3) mg/dL Est Cr Clr Drug Dosing 27.75 mL/min Estimated GFR (MDRD) 24 (>60) mL/min BUN/Creatinine Ratio 10.8 L (14-18) Glucose 129 H (83-115) mg/dL Calcium 8.8 (8.5-10.1) mg/dL Magnesium 2.2 (1.8-2.4) mg/dl Iron (65-175) ug/dL TIBC (100-400) ug/dL % Saturation (20-55) % Transferrin (202-364) mg/dL Total Bilirubin 0.5 (0.2-1.0) mg/dL AST 16 (15-37) U/L ALT 76 H (16-63) U/L Alkaline Phosphatase 72 (46-116) U/L Lactate Dehydrogenase (85-227) U/L C-Reactive Protein 0.3 (<1.0) mg/dL NT-Pro-B Natriuret Pep (0-125) pg/mL Total Protein 7.2 (6.4-8.2) g/dl Albumin 3.4 (3.4-5.0) g/dl Globulin 3.8 gm/dL Albumin/Globulin Ratio 0.9 L (1-2) TSH 3rd Generation (0.358-3.74) uIU/mL SARS-CoV-2 RNA ([place]) (NEGATIVE) Blood Type Gel Antibody Screen Crossmatch 11/11/20 11/11/20 11/11/20 Range/Units 17:34 17:34 17:34 WBC (4.23-9.07) K/mm3 RBC (4.63-6.08) M/mm3 Hgb (13.7-17.5) gm/dl Hct (40.1-51.0) % MCV (79.0-92.2) fl MCH (25.7-32.2) pg MCHC (32.2-35.5) g/dl RDW Std Deviation (35.1-43.9) fL Plt Count (163-337) K/mm3 MPV (9.4-12.3) fl Neut % (Auto) (34.0-67.9) % Lymph % (Auto) (21.8-53.1) % Moffat % (Auto) (5.3-12.2) % Eos % (Auto) (0.8-7.0) Baso % (Auto) (0.1-1.2) % Neut # (Auto) (1.78-5.38) K/mm3 Lymph # (Auto) (1.32-3.57) K/mm3 Moffat # (Auto) (0.30-0.82) K/mm3 Eos # (Auto) (0.04-0.54) K/mm3 Baso # (Auto) (0.01-0.08) K/mm3 Manual Slide Review ESR 44 H (0-15) mm/hr Percent Retic (0.51-1.81) % PT (9.7-12.0) SECONDS INR APTT (21.7-31.4) SECONDS Sodium (136-145) mEq/L Potassium (3.5-5.1) mEq/L Chloride (98-107) mEq/L Carbon Dioxide (21-32) mEq/L Anion Gap (5-15) BUN (7-18) mg/dL Creatinine (0.7-1.3) mg/dL Est Cr Clr Drug Dosing mL/min Estimated GFR (MDRD) (>60) mL/min BUN/Creatinine Ratio (14-18) Glucose (83-115) mg/dL Calcium (8.5-10.1) mg/dL Magnesium (1.8-2.4) mg/dl Iron 14 L (65-175) ug/dL TIBC 439 H (100-400) ug/dL % Saturation 3 L (20-55) % Transferrin 351 (202-364) mg/dL Total Bilirubin (0.2-1.0) mg/dL AST (15-37) U/L ALT (16-63) U/L Alkaline Phosphatase (46-116) U/L Lactate Dehydrogenase (85-227) U/L C-Reactive Protein (<1.0) mg/dL NT-Pro-B Natriuret Pep 1663 H (0-125) pg/mL Total Protein (6.4-8.2) g/dl Albumin (3.4-5.0) g/dl Globulin gm/dL Albumin/Globulin Ratio (1-2) TSH 3rd Generation (0.358-3.74) uIU/mL SARS-CoV-2 RNA ([place]) (NEGATIVE) Blood Type Gel Antibody Screen Crossmatch 11/11/20 11/11/20 11/11/20 Range/Units 17:34 17:34 17:34 WBC (4.23-9.07) K/mm3 RBC (4.63-6.08) M/mm3 Hgb (13.7-17.5) gm/dl Hct (40.1-51.0) % MCV (79.0-92.2) fl MCH (25.7-32.2) pg MCHC (32.2-35.5) g/dl RDW Std Deviation (35.1-43.9) fL Plt Count (163-337) K/mm3 MPV (9.4-12.3) fl Neut % (Auto) (34.0-67.9) % Lymph % (Auto) (21.8-53.1) % Moffat % (Auto) (5.3-12.2) % Eos % (Auto) (0.8-7.0) Baso % (Auto) (0.1-1.2) % Neut # (Auto) (1.78-5.38) K/mm3 Lymph # (Auto) (1.32-3.57) K/mm3 Moffat # (Auto) (0.30-0.82) K/mm3 Eos # (Auto) (0.04-0.54) K/mm3 Baso # (Auto) (0.01-0.08) K/mm3 Manual Slide Review ESR (0-15) mm/hr Percent Retic (0.51-1.81) % PT (9.7-12.0) SECONDS INR APTT (21.7-31.4) SECONDS Sodium (136-145) mEq/L Potassium (3.5-5.1) mEq/L Chloride (98-107) mEq/L Carbon Dioxide (21-32) mEq/L Anion Gap (5-15) BUN (7-18) mg/dL Creatinine (0.7-1.3) mg/dL Est Cr Clr Drug Dosing mL/min Estimated GFR (MDRD) (>60) mL/min BUN/Creatinine Ratio (14-18) Glucose (83-115) mg/dL Calcium (8.5-10.1) mg/dL Magnesium (1.8-2.4) mg/dl Iron (65-175) ug/dL TIBC (100-400) ug/dL % Saturation (20-55) % Transferrin (202-364) mg/dL Total Bilirubin (0.2-1.0) mg/dL AST (15-37) U/L ALT (16-63) U/L Alkaline Phosphatase (46-116) U/L Lactate Dehydrogenase 219 (85-227) U/L C-Reactive Protein (<1.0) mg/dL NT-Pro-B Natriuret Pep (0-125) pg/mL Total Protein (6.4-8.2) g/dl Albumin (3.4-5.0) g/dl Globulin gm/dL Albumin/Globulin Ratio (1-2) TSH 3rd Generation 1.687 (0.358-3.74) uIU/mL SARS-CoV-2 RNA ([place]) (NEGATIVE) Blood Type AB NEGATIVE Gel Antibody Screen Negative Crossmatch See Detail 11/11/20 11/12/20 11/12/20 Range/Units 18:00 07:42 07:42 WBC 9.22 H (4.23-9.07) K/mm3 RBC 4.04 L (4.63-6.08) M/mm3 Hgb 9.7 L D (13.7-17.5) gm/dl Hct 31.5 L (40.1-51.0) % MCV 78.0 L D (79.0-92.2) fl MCH 24.0 L (25.7-32.2) pg MCHC 30.8 L (32.2-35.5) g/dl RDW Std Deviation 54.8 H (35.1-43.9) fL Plt Count 377 H (163-337) K/mm3 MPV 10.1 (9.4-12.3) fl Neut % (Auto) 66.2 (34.0-67.9) % Lymph % (Auto) 15.7 L (21.8-53.1) % Moffat % (Auto) 13.2 H (5.3-12.2) % Eos % (Auto) 4.3 (0.8-7.0) Baso % (Auto) 0.4 (0.1-1.2) % Neut # (Auto) 6.09 H (1.78-5.38) K/mm3 Lymph # (Auto) 1.45 (1.32-3.57) K/mm3 Moffat # (Auto) 1.22 H (0.30-0.82) K/mm3 Eos # (Auto) 0.40 (0.04-0.54) K/mm3 Baso # (Auto) 0.04 (0.01-0.08) K/mm3 Manual Slide Review Abnormal smear ESR (0-15) mm/hr Percent Retic (0.51-1.81) % PT (9.7-12.0) SECONDS INR APTT (21.7-31.4) SECONDS Sodium 137 (136-145) mEq/L Potassium 3.6 (3.5-5.1) mEq/L Chloride 101 (98-107) mEq/L Carbon Dioxide 21 (21-32) mEq/L Anion Gap 18.6 H (5-15) BUN 25 H (7-18) mg/dL Creatinine 2.5 H (0.7-1.3) mg/dL Est Cr Clr Drug Dosing 27.39 mL/min Estimated GFR (MDRD) 26 (>60) mL/min BUN/Creatinine Ratio 10.0 L (14-18) Glucose 95 (83-115) mg/dL Calcium 9.3 (8.5-10.1) mg/dL Magnesium 2.1 (1.8-2.4) mg/dl Iron (65-175) ug/dL TIBC (100-400) ug/dL % Saturation (20-55) % Transferrin (202-364) mg/dL Total Bilirubin (0.2-1.0) mg/dL AST (15-37) U/L ALT (16-63) U/L Alkaline Phosphatase (46-116) U/L Lactate Dehydrogenase (85-227) U/L C-Reactive Protein (<1.0) mg/dL NT-Pro-B Natriuret Pep (0-125) pg/mL Total Protein (6.4-8.2) g/dl Albumin (3.4-5.0) g/dl Globulin gm/dL Albumin/Globulin Ratio (1-2) TSH 3rd Generation (0.358-3.74) uIU/mL SARS-CoV-2 RNA ([place]) Negative (NEGATIVE) Blood Type Gel Antibody Screen Crossmatch Med Orders - Current: Current Medications Acetaminophen (Acetaminophen 325 Mg Tab) 650 mg PO Q4H PRN PRN Reason: Pain (Mild 1-3)/fever Albuterol (Albuterol 0.083% 2.5 Mg/3 Ml Neb Soln) 2.5 mg NEB Q2H PRN PRN Reason: Shortness Of Breath/wheezing Albuterol/Ipratropium (Albuterol/Ipratropium 3.0-0.5 Mg/3 Ml Neb Soln) 3 ml NEB Q4H PRN PRN Reason: Shortness Of Breath/wheezing Amlodipine Besylate (Amlodipine 10 Mg Tab) 10 mg PO DAILY [facility] Last Admin: 11/12/20 10:25 Dose: Not Given Documented by: Atenolol (Atenolol 25 Mg Tab) 25 mg PO DAILY [facility] Last Admin: 11/12/20 10:25 Dose: Not Given Documented by: Atorvastatin Calcium (Atorvastatin 40 Mg Tab) 40 mg PO DAILY [facility] Last Admin: 11/12/20 10:25 Dose: Not Given Documented by: Calcitriol (Calcitriol 0.25 Mcg Cap) 0.25 mcg PO MoWeFr@0900 [facility] Last Admin: 11/12/20 10:25 Dose: Not Given Documented by: Mometasone Furoate/Formoterol Fumar (Formoterol/Mometasone 100-5 Mcg 8.8 Gm Inhaler) 2 puff IH BID [facility] Last Admin: 11/12/20 08:53 Dose: Not Given Documented by: Montelukast Sodium (Montelukast 10 Mg Tab) 10 mg PO BEDTIME [facility] Ondansetron HCl (Ondansetron 4 Mg/2 Ml Sdv) 4 mg IV Q4H PRN PRN Reason: Nausea/Vomiting Sodium Bicarbonate (Sodium Bicarbonate 650 Mg Tab) 650 mg PO TID [facility] Last Admin: 11/12/20 10:25 Dose: Not Given Documented by: Thiamine HCl (Thiamine 100 Mg Tab) 100 mg PO DAILY [facility] Last Admin: 11/12/20 10:25 Dose: Not Given Documented by: Tiotropium [place] (Tiotropium [place] 4 Gm Inhalation [place] (2.5mcg/1 Dose; 10 Doses)) 0 gm INH DAILY [facility] Last Admin: 11/12/20 08:53 Dose: Not Given Documented by: Discontinued Medications Furosemide (Furosemide 20 Mg/2 Ml Vial) 40 mg IVPUSH ONETIME ONE Stop: 11/12/20 04:01 Furosemide (Furosemide 20 Mg/2 Ml Vial) 40 mg IVPUSH ONETIME ONE Stop: 11/12/20 00:01 Last Admin: 11/12/20 01:26 Dose: 40 mg Documented by: Sodium Chloride (Normal Saline) 250 mls @ 100 mls/hr IV STAT STA Stop: 11/11/20 22:08 Last Admin: 11/11/20 19:51 Dose: 100 mls/hr Documented by: - Exam Quality Assessment: Reports: DVT Prophylaxis. Denies: Supplemental Oxygen, Urine Catheter General: Reports: Alert, Oriented, Cooperative, No Acute Distress HEENT: Reports: Pupils Equal, Pupils Reactive, Mucous Membr. Moist/[place] Neck: Reports: Supple, Trachea Midline Lungs: Reports: Normal Respiratory Effort, Decreased Breath Sounds, Wheezing (mild end expiratory ) Cardiovascular: Reports: Regular Rate, Regular Rhythm GI/Abdominal Exam: Normal Bowel Sounds, Soft, Non-Tender, No Distention (Male) Exam: Deferred Rectal (Males) Exam: Deferred Back Exam: Reports: Normal Inspection, Full Range of Motion Extremities: Normal Inspection, Normal Range of Motion, Non-Tender, No Pedal Edema, Normal Capillary Refill Skin: Reports: Warm, Dry Neurological: Reports: No New Focal Deficit Psy/Mental Status: Reports: Alert, Normal Affect, Normal Mood
[2020-11-12] MEDS ORDERED: Montelukast 10 MG Tab PO SCH (21:00)
--- NOTE | 2020-11-16 10:08 | PCM.SN.2 ---
- Free Text/Narrative Note: Received fax from [facility]. Patient repeat blood draw on 11/15/2020 showed hemoglobin of 9.8 and hematocrit of 32.0. This is a slight improvement from discharge with a hemoglobin of 9.7. Patient may follow-up with primary care provider as scheduled.
== END 2020-11-12 11:55 | disposition home or self-care (01) ==
LOC: JD.ED 17:09 → JD.MS 20:25
PROVIDERS: ADMIT Family Medicine; ATTEND Family Medicine
DX: D50.9 Iron deficiency anemia, unspecified (principal); J44.1 Chronic obstructive pulmonary disease with (acute) exacerbation; N18.4 Chronic kidney disease, stage 4 (severe); I50.9 Heart failure, unspecified; I13.0 Hypertensive heart and chronic kidney disease with heart failure and stage 1 through stage 4 chronic kidney disease, or unspecified chronic kidney disease; E78.00 Pure hypercholesterolemia, unspecified; R91.1 Solitary pulmonary nodule; N40.0 Benign prostatic hyperplasia without lower urinary tract symptoms; N28.81 Hypertrophy of kidney; Z20.822 Contact with and (suspected) exposure to COVID-19; Z98.890 Other specified postprocedural states; Z79.899 Other long term (current) drug therapy; Z79.82 Long term (current) use of aspirin; Z87.891 Personal history of nicotine dependence; Z90.79 Acquired absence of other genital organ(s)
CPT/HCPCS: 36415; 36430; 80048; 80053; 83540; 83615; 83735; 83880; 84443; 84466; 85025; 85045; 85610; 85652; 85730; 86140; 86850; 86900; 86901; 86922; 93005; 96374; G0378; J1940; J7050; P9016; U0002; 93010; 99219; 99285; 99285-25; A9270-GY

== ENCOUNTER 2025-03-10 16:34 | Inpatient (IN) | payer MEDICARE, OTHER ==
[2025-03-10 17:13] LABS: BASOPHILS ABSOLUTE AUTO 0.0 K/mm3 (0.0-0.2); BASOPHILS PERCENT AUTO 0.2 % (0.0-1.0); EOSINOPHILS ABSOLUTE AUTO 0.1 K/mm3 (0.0-0.4); EOSINOPHILS PERCENT AUTO 2.8 % (0.0-6.0); IMMATURE GRAN ABSOLUTE AUTO 0.01 K/mm3 (0.00-0.05); IMMATURE GRAN PERCENT AUTO 0.2 % (0.0-0.4); LYMPHOCYTES ABSOLUTE AUTO 0.4 K/mm3 (1.0-4.8); LYMPHOCYTES PERCENT AUTO 10.2 % (24.0-44.0); MEAN PLATELET VOLUME 9.4 fl (9.4-12.4); MONOCYTES ABSOLUTE AUTO 0.0 K/mm3 (0.0-0.8); MONOCYTES PERCENT AUTO 0.7 % (0.0-8.0); NEUTROPHILS ABSOLUTE AUTO 3.7 K/mm3 (1.8-7.7); NEUTROPHILS PERCENT AUTO 85.9 % (41.0-71.0); NRBC ABSOLUTE 0.00 (0.00-0.02); NRBC PERCENT 0.0 % (0.0-0.2); PLATELET COUNT,PLT 177 K/mm3 (150-400); RED BLOOD CELL COUNT 4.86 M/mm3 (4.52-5.90); WHITE BLOOD CELL COUNT,WBC 4.33 K/mm3 (3.9-11.3)
[2025-03-10 17:42] LABS: A/G RATIO 0.8 (1-2); ALANINE AMINOTRANSFERASE,ALT 28.0 U/L (16-63); ASPARTATE AMNIOTRANSFERASE,AST 37.0 U/L (15-37); BILIRUBIN TOTAL 0.4 mg/dL (0.2-1.0); BLOOD UREA NITROGEN,BUN 30.0 mg/dL (7-18); CARBON DIOXIDE,CO2 23.0 mEq/L (21-32); CHLORIDE,CL 102.0 mEq/L (98-107); CREATININE 2.8 mg/dL (0.7-1.3); EST CRCL DRUG DOSING (CG) 22.8 mL/min; ESTIMATED GFR 23.0 mL/min (>60); GLUCOSE RANDOM 57.0 mg/dL (70-99); POTASSIUM,K 3.7 mEq/L (3.5-5.1); PROTEIN TOTAL,TP 8.1 g/dl (6.4-8.2); SODIUM,NA 139.0 mEq/L (136-145); TROPONIN I HIGH SENSITIVITY 45.0 pg/mL (<=76)
[2025-03-10] MEDS: Sodium Chloride 0.9% 10 ML Syringe FLUSH PRN (18:10)
[2025-03-10] MEDS: Ondansetron 4 MG/2 ML SDV IVPUSH ONE (18:10)
[2025-03-10 18:37] LABS: APPEARANCE,URINE CLEAR (Clear); GLUCOSE,URINE 2+ (Negative); OCCULT BLOOD,URINE 1+ (Negative)
[2025-03-10] MEDS: 50% Dextrose in Water 50 ML Syringe IVPUSH ONE (18:49)
[2025-03-10 18:56] LABS: SQUAMOUS EPITHELIAL CELLS,UR 0-5 /hpf (0-5)
[2025-03-10] MEDS: Levofloxacin/Dextrose 5%-Water 750 MG in Premix Bag 1 BAG IV ONE (19:40)
[2025-03-11 04:05] LABS: BASOPHILS ABSOLUTE AUTO 0.0 K/mm3 (0.0-0.2); BASOPHILS PERCENT AUTO 0.2 % (0.0-1.0); EOSINOPHILS ABSOLUTE AUTO 0.0 K/mm3 (0.0-0.4); EOSINOPHILS PERCENT AUTO 0.0 % (0.0-6.0); IMMATURE GRAN ABSOLUTE AUTO 0.06 K/mm3 (0.00-0.05); IMMATURE GRAN PERCENT AUTO 0.5 % (0.0-0.4); LYMPHOCYTES ABSOLUTE AUTO 0.3 K/mm3 (1.0-4.8); LYMPHOCYTES PERCENT AUTO 2.5 % (24.0-44.0); MEAN PLATELET VOLUME 9.8 fl (9.4-12.4); MONOCYTES ABSOLUTE AUTO 0.8 K/mm3 (0.0-0.8); MONOCYTES PERCENT AUTO 6.2 % (0.0-8.0); NEUTROPHILS ABSOLUTE AUTO 11.4 K/mm3 (1.8-7.7); NEUTROPHILS PERCENT AUTO 90.6 % (41.0-71.0); NRBC ABSOLUTE 0.00 (0.00-0.02); NRBC PERCENT 0.0 % (0.0-0.2); PLATELET COUNT,PLT 134 K/mm3 (150-400); RED BLOOD CELL COUNT 4.03 M/mm3 (4.52-5.90); WHITE BLOOD CELL COUNT,WBC 12.52 K/mm3 (3.9-11.3)
[2025-03-11 04:24] LABS: BLOOD UREA NITROGEN,BUN 28.0 mg/dL (7-18); CARBON DIOXIDE,CO2 22.0 mEq/L (21-32); CHLORIDE,CL 104.0 mEq/L (98-107); CREATININE 2.4 mg/dL (0.7-1.3); ESTIMATED GFR 27.0 mL/min (>60); GLUCOSE RANDOM 105.0 mg/dL (70-99); POTASSIUM,K 4.1 mEq/L (3.5-5.1); SODIUM,NA 137.0 mEq/L (136-145)
[2025-03-11 04:53] LABS: EST CRCL DRUG DOSING (CG) 24.78 mL/min
[2025-03-11] MEDS: Magnesium Sulfate 2 GM/50 mL 2 GM in Premix Bag 1 BAG IV ONE (08:59)
[2025-03-11 14:40] LABS: BLOOD UREA NITROGEN,BUN 28.0 mg/dL (7-18); CARBON DIOXIDE,CO2 22.0 mEq/L (21-32); CHLORIDE,CL 105.0 mEq/L (98-107); CREATININE 2.4 mg/dL (0.7-1.3); EST CRCL DRUG DOSING (CG) 24.78 mL/min; ESTIMATED GFR 27.0 mL/min (>60); GLUCOSE RANDOM 94.0 mg/dL (70-99); POTASSIUM,K 3.5 mEq/L (3.5-5.1); SODIUM,NA 136.0 mEq/L (136-145)
[2025-03-11 17:36] VITALS: BP 136/78; PULSE 70
== END 2025-03-11 16:34 | disposition home or self-care (01) | DRG 682 ==
LOC: JD.ED 16:34 → JD.MS 19:00
PROVIDERS: ADMIT Family Medicine; ATTEND Family Medicine
DX: N17.9 Acute kidney failure, unspecified (principal); J18.9 Pneumonia, unspecified organism; N18.9 Chronic kidney disease, unspecified; J44.89 Other specified chronic obstructive pulmonary disease; Q60.0 Renal agenesis, unilateral; N18.4 Chronic kidney disease, stage 4 (severe); I12.9 Hypertensive chronic kidney disease with stage 1 through stage 4 chronic kidney disease, or unspecified chronic kidney disease; I48.91 Unspecified atrial fibrillation; H54.7 Unspecified visual loss; E78.5 Hyperlipidemia, unspecified; N40.0 Benign prostatic hyperplasia without lower urinary tract symptoms; N28.81 Hypertrophy of kidney; J43.1 Panlobular emphysema; E86.1 Hypovolemia; R93.89 Abnormal findings on diagnostic imaging of other specified body structures; Z79.01 Long term (current) use of anticoagulants; Z79.899 Other long term (current) drug therapy; Z98.890 Other specified postprocedural states; Z85.118 Personal history of other malignant neoplasm of bronchus and lung; Z95.0 Presence of cardiac pacemaker; Z98.49 Cataract extraction status, unspecified eye; Z86.16 Personal history of COVID-19
CPT/HCPCS: 36415; 71045; 71045-26; 80048; 80053; 81001; 83735; 83880; 84484; 85025; 93005; 93010; 94640; 94760; 96374; 96375; 97116-GP; 97161-GP; 99285; 99285-25; A9270-GY; J1956; J2405; J3475; J7030